=== PATIENT | female | born 1985 | race African-American/Black ===

== ENCOUNTER 2025-09-18 09:41 | Inpatient (IN) | payer MEDICAID, OTHER ==
[~2025-09-18] VITALS: Ht 167.6 cm; Wt 88.5 kg
--- NOTE | 2025-09-18 10:49 | ED.PDOC ---
History of Present Illness HPI Comments 40 year old female with PMHx HTN presents to the ED with a chief complaint of cough onset 1 week. Patient states she has been experiencing cough with hemoptysis as well as blood when she blows her nose, poor appetite. For the past 5 months, she has been experiencing LT foot numbness with pain, worsens with e xertion. She has not seen PCP, moved from [place], dealing with insurance issues. Denies fever, chills, nausea, vomiting, diarrhea, hematemesis, melena, blood in stool, dizziness, blurred vision, abdominal pain, chest pain, shortness of breath. No other symptoms or modifying factors present at this time. 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 Pertinent DRY ICE MACHINE OPERATOR History Family History Family History: Reviewed,noncontributory to illness, No family hx of Cancer, No family hx of DM, No family hx of Heart denisse, No family hx of HTN, No family hx ofKidney denisse, No family hx of Liver denisse, No family hx of Lung denisse, No family hx of Stroke Social History Smoker: Non-Smoker Alcohol: Denies ETOH Use Drugs: Denies Drug Use Lives In: Home Constitutional: denies: chills, diaphoresis, fatigue, fever, malaise, sweats, weakness, others EENTM: reports: nose bleeding (bloody); denies: blurred vision, double vision, ear bleeding, ear discharge, ear drainage, ear pain, ear ringing, eye pain, eye redness, hearing loss, mouth pain, mouth swelling, nasal discharge, nose congest ion, nose pain, photophobia, tearing, throat pain, throat swelling, voice changes, others Respiratory: reports: cough, hemoptysis; denies: orthopnea, SOB at rest, shortness of breath, SOB with excertion, stridor, wheezing, others Cardiovascular: denies: chest pain, dizzy spells, diaphoresis, Dyspnea on exertion, edema, irregular heart beat, left arm pain, lightheadedness, palpitations, PND, syncope, others Gastrointestinal: reports: poor appetite; denies: abdomen distended, abdominal pain, blood streaked bowels, constipated, diarrhea, dysphagia, difficulty swallowing, hematemesis, melena, nausea, poor fluid intake, rectal bleeding, rectal pain, vomiting, others Genitourinary: denies: abnormal vagina bleeding, burning, dyspareunia, dysuria, flank pain, frequency, hematuria, incontinence, pain, , vagina discharge, urgency, others Neurological: reports: numbness (LT foot); denies: dizziness, fainting, headache, left sided numbness, left sided weakness, paresthesia, pre-existing deficit, right sided numbness, right sided weakness, seizure, speech problems, tingling, tremors, weakness, others Musculoskeletal: reports: others (LT foot pain and numbness); denies: back pain, gout, joint pain, joint swelling, muscle pain, muscle stiffness, neck pain Integumetry: denies: bruises, change in color, change in hair/nails, dryness, laceration, lesions, lumps, rash, wounds, others Allergic/Immunocompromised: denies: Difficulty Healing, Frequent Infections, Hives, Itching, others Hematologic/Lymphatic: denies: anemia, blood clots, easy bleeding, easy bruising, swollen glands, others Endocrine: denies: excessive hunger, excessive sweating, excessive thirst, excessive urination, flushing, intolerance to cold, intolerance to heat, unexplained weight gain, unexplained weight loss, others Psychiatric: denies: anxiety, bipolar disorder, depression, hopeless, panic disorder, schizophrenia, sleepless, suicidal, others All Other Systems: Reviewed and Negative Physical Exam General Appearance: Normal HEENT: Normal ENT Inspection, Pharynx Normal, TMs Normal Neck: Full Range of Motion, Non-Tender, Normal, Normal Inspection Respiratory: Chest Non-Tender, Lungs Clear, No Accessory Muscle Use, No Respira tory Distress, Normal Breath Sounds Cardiovascular: No Edema, No JVD, No Murmur, No Gallop, Normal Peripheral Pulses, Regular Rate/Rhythm Breast Exam: Deferred Gastrointestinal: No Organomegaly, Non Tender, No Pulsatile Mass, Normal Bowel Sounds, Soft Genitalia: Deferred Pelvic: Deferred Rectal: Deferred Extremities: No calf tenderness, Normal capillary refill, Normal inspection, Normal range of motion, Non-tender, No pedal edema Musculoskeletal : Apperance: Normal Neurologic: Alert, torpedo worker II-XII nml as Tested, No Motor Deficits, Normal Affect, Normal Mood, No Sensory Deficits Cerebellar Function: Normal Reflexes: Normal Skin: Dry, Normal Color, Warm Lymphatic: No Adenopathy Was a procedure done? Was a procedure done?: No Differential Dx Considerations may include: Viral syndrome, arthralgias, hypertensive urgency, infectious etiology X-Ray, Labs, Meds, VS Vital Signs Date Time Temp Pulse Resp B/P (MAP) Pulse Ox O2 Delivery O2 Flow Rate FiO2 09/18/25 12:05 98.2 80 16 190/119 (142) 98 98.2 09/18/25 10:12 94 18 98 Room Air 09/18/25 10:12 94 18 147/101 (116) 98 09/18/25 09:43 98.5 86 18 141/105 98 98.5 Lab Test 09/18/25 11:04 09/18/25 10:42 Range/Units Urine Color Light-yellow Yellow Urine Clarity Turbid H Clear Urine pH 7.0 5.0-9.0 Urine Specific [place] 1.023 1.001-1.035 Urine Protein Negative Negative Urine Ketones Negative Negative Urine Blood 3+ H Negative /uL Urine Nitrite Negative Negative Urine Bilirubin Negative Negative Urine Urobilinogen Normal Negative mg/dL Urine Leukocyte Esterase Negative Negative /uL Urine RBC 341 0 - 4 /hpf Urine Microscopic WBC 2 0-5 /HPF Urine Squamous Epithelial Cells Few <5 /hpf Urine Amorphous Crystals Few None Seen /hpf Urine Bacteria Many H None Seen /hpf Urine Yeast (Budding) Moderate None Seen /hpf Urine Glucose Normal Normal mg/dL Urine Test Negative Negative White Blood Count 4.8 4.4-10.8 10^3/uL Red Blood Count 4.90 4.0-5.20 10^6/uL Hemoglobin 14.8 12.2-16.2 g/dL Hematocrit 43.0 36.0-46.0 % Mean Corpuscular Volume 87.7 80.0-100.0 fL Mean Corpuscular Hemoglobin 30.3 28.0-32.0 pg Mean Corpuscular Hemoglobin Concent 34.5 32.0-36.0 g/dL Red Cell Distribution Width 12.6 11.8-14.3 % Platelet Count 221 140-450 10^3/uL Mean Platelet Volume 7.9 6.9-10.8 fL Neutrophils (%) (Auto) 51.4 37.0-80.0 % Lymphocytes (%) (Auto) 37.3 10.0-50.0 % Monocytes (%) (Auto) 9.3 0.0-12.0 % Eosinophils (%) (Auto) 1.0 0.0-7.0 % Basophils (%) (Auto) 1.0 0.0-2.0 % Neutrophils # (Auto) 2.5 1.6-8.6 10 ^3/uL Lymphocytes # (Auto) 1.8 0.4-5.4 10 ^3/uL Monocytes # (Auto) 0.4 0-1.3 10 ^3/uL Eosinophils # (Auto) 0 0-0.8 10 ^3/uL Basophils # (Auto) 0 0-0.2 10 ^3/uL Nucleated Red Blood Cells 0.2 % Sodium Level 140 136-145 mmol/L Potassium Level 3.7 3.5-5.1 mmol/L Chloride Level 104 98-107 mmol/L Carbon Dioxide Level 28 20-31 mmol/L Anion Gap 8 5-15 Blood Urea Nitrogen 10 9-23 mg/dL Creatinine 0.75 0.550-1.02 mg/dL Glomerular Filtration Rate Calc 104 >90 mL/min BUN/Creatinine Ratio 13.3 10.0-20.0 Serum Glucose 94 74-106 mg/dL Calcium Level 9.5 8.7-10.4 mg/dL Time of 1ST Reevaluation: 11:10 Reevaluation 1ST: Unchanged Patient Education/Counseling: Diagnosis, Treatment, Prognosis Family Education/Counseling: No Family Present SEPSIS Sepsis Screen Date sepsis recognized/suspect: Sep 18, 2025 Time Sepsis recognized/suspect: 09 Recent Procedure: No On Antibiotic Therapy: No Respiratory Rate >20: No Heart Rate >90: No Temp<36 C (96.8 F) or >38.3 C: No SBP <90 or MAP <65 mmHG: No New Acute Mental Status Change: No Is the patient on CPAP, BIPAP,: No Physician Orders L Foot 3 View Xray (09/18/25 10:33) Chest Portable (09/18/25 10:33) Troponin-I Hs (09/18/25 12:09) Troponin-I Hs (09/18/25 13:09) Troponin-I Hs (09/18/25 15:09) Hydralazine Injection (Apresoline Inject (09/18/25 12:15) Vital Signs Date Time Temp Pulse Resp B/P (MAP) Pulse Ox O2 Delivery O2 Flow Rate FiO2 09/18/25 12:05 98.2 80 16 190/119 (142) 98 98.2 09/18/25 10:12 94 18 98 Room Air 09/18/25 10:12 94 18 147/101 (116) 98 09/18/25 09:43 98.5 86 18 141/105 98 98.5 Laboratory Tests Test 09/18/25 10:42 White Blood Count 4.8 10^3/uL (4.4-10.8) Departure 1 Departure Time of Disposition: 12:11 (Patient presented with hypertension and symptoms concerning for hypertensive emergency. Patient is receiving iv blood pressure medications requiring intensive monitoring. Data: 1. I ordered and reviewed the result of at least 3 labs including a CBC, BMP, and Urinalysis. 2. I independently interpreted the following tests: Chest x-ray is benign. EKG which is Normal Sinus RhythmRisk:This patient has a high risk of morbidity due to further diagnostic testing or treatment and may suffer from an acute cardiac disorder. Workup reveals hypertensive emergency and patient should be admitted for further workup. and possible expert consultation. ) Impression: Primary Impression: Hypertensive urgency Additional Impressions: Generalized weakness Numbness of left foot Disposition: ADMITTED INPATIENT Admit to: Tele Condition: Guarded Critical Care Note Critical Care Time?: Yes Critical care comment: Hypertensive urgency Authorized and Performed by: Kamila Ho MD Total critical care time: Approximately 39 minutes Due to a high probability of clinically significant, life threatening deterioration, the patient required my highest level of preparedness to interven e emergently and I personally spent this critical care time directly and personally managing the patient. This critical care time included obtaining a history; examining the patient; pulse oximetry; ordering and review of studies; arranging urgent treatment with development of a management plan; evaluation of patient's response to treatment; frequent reassessment; and, discussions with other providers. This critical care time was performed to assess and manage the high probability of imminent, life-threatening deterioration that could result in multi-organ failure. It was exclusive of separately billable procedures and treating other patients and teaching time. Please see my other sections and the rest of the note for further information on patient assessment and treatment. Stability Stability form required: No Heart Score Heart Score: Heart Score Response (Comments) Value History N/A 0 EKG N/A 0 Age N/A 0 Risk Factors N/A 0 Troponin N/A 0 Total 0 I personally scribed for KAMILA HO MD ([email or web address]) on 09/18/25 at 10:49. Elect ronically submitted by Fabinaa Haywood ([email or web address]). KAMILA HO MD Sep 18, 2025 10:49
[2025-09-18 10:52] LABS: Hematocrit 43.0 % (36.0-46.0); Hemoglobin 14.8 g/dL (12.2-16.2); Mean Corpuscular Hemoglobin 30.3 pg (28.0-32.0); Mean Corpuscular Volume 87.7 fL (80.0-100.0); Nucleated Red Blood Cells % 0.2 %
[2025-09-18 10:59] LABS: Chloride 104 mmol/L (98-107); Potassium 3.7 mmol/L (3.5-5.1); Sodium 140 mmol/L (136-145)
[2025-09-18 11:00] LABS: Anion Gap 8 (5-15); Calcium 9.5 mg/dL (8.7-10.4); Carbon Dioxide 28 mmol/L (20-31)
[2025-09-18 11:05] LABS: BUN/Creatinine Ratio 13.3 (10.0-20.0); Blood Urea Nitrogen 10 mg/dL (9-23); Glucose 94 mg/dL (74-106)
[2025-09-18 11:22] LABS: Urine Amorphous Crystal FEW /hpf (None Seen); Urine Budding Yeast MODERATE /hpf (None Seen); Urine Protein, UAD Negative (Negative)
--- NOTE | 2025-09-18 11:53 | DVH ---
XY CHEST PORTABLE, HISTORY: Bloody cough COMPARISON: None None TECHNICAL DATA: 1 view of the chest was obtained. FINDINGS: Lines and tubes: None Cardiomediastinal silhouette: normal Pulmonary vasculature: normal Lung expansion: normal Lung airspace: normal Lung interstitium: normal Pleura: normal Pneumothorax: no Bones: Unremarkable Other: no IMPRESSION: No acute intrathoracic abnormality.
--- NOTE | 2025-09-18 11:56 | DVH ---
CLINICAL INDICATION: left foot pain TECHNIQUE: 3 radiographic views of the left foot were obtained. Comparison: None FINDINGS/IMPRESSION: There are no fractures dislocations noted in the left foot. Bony alignment appears normal. There are no radiopaque foreign bodies.
[2025-09-18] MEDS: hydrALAZINE HCL 20 MG/ML VL IV ONE (13:10)
[2025-09-18] MEDS ORDERED: ACETAMINOPHEN 325 MG TAB PO PRN (14:30)
[2025-09-18] MEDS ORDERED: MORPHINE SULFATE INJ 2 MG/ml SYRG IV PRN (14:30)
[2025-09-18] MEDS ORDERED: NITROGLYCERIN 0.4 MG SL TAB SL PRN (14:30)
[2025-09-18] MEDS ORDERED: ONDANSETRON HCL 4 MG/2 ML VIAL IV PRN (14:30)
[2025-09-18] MEDS ORDERED: LOS25T PO (14:38)
[2025-09-18] MEDS ORDERED: LISINOPRIL 5 MG TAB PO ONE (15:00)
--- NOTE | 2025-09-18 15:00 | DVHHP2 ---
History of Present Illness Reason for Visit: Cough History of Present Illness Cecy Velasco is a 40-year-old female with past medical history of hypertension, who came to the hospital for shortness of breath and cough. Patient states she has been experiencing bloody noses, cough, hemoptysis, decreased appetite, and fatigue for almost 2 weeks. She states she her symptoms have worsened with shortness of breath when laying down, and she is propping herself up with pillows to sleep. She also states she had left foot numbness and tingling for a couple months. Cardiovascular: HTN Past Surgical History: Appendectomy Smoke: No ALCOHOL: none Drugs: None Lives: Alone Domestic Violence: Neg Review of Systems Constitutional: No: Fever, Chills, Sweats, Weakness, Malaise, Other Eyes: No: Pain, Vision change, Conjunctivae inflammation, Eyelid inflammation, Other, Redness ENT: No: Ear pain, Ear discharge, Nose pain, Nose discharge, Nose congestion, Mouth pain, Mouth swelling, Throat pain, Throat swelling, Other Respiratory: Cough, Shortness of breath, Hemoptysis; No: Dry, SOB with excertion, Wheezing, Pleuritic Pain, Sputum, Wheezing, Other Cardiovascular: No: Chest Pain, Palpitations, Orthopnea, Paroxysmal Noc. Dyspnea, Edema, Lt Headedness, Other Gastrointestinal: No: Nausea, Vomiting, Abdominal Pain, Diarrhea, Constipation, Melena, Hematochezia, Other Genitourinary: No Dysuria, No Frequency, No Incontinence, No Hematuria, No Retention, No Other Musculoskeletal: No: other, neck pain, shoulder pain, arm pain, back pain, hand pain, leg pain, foot pain Skin: No: Rash, Lesions, Jaundice, Bruising, Other Neurological: Numbness (Left foot); No: Weakness, Incoordination, Change in speech, Confusion, Seizures, Other Allergies: Coded Allergies: NO KNOWN ALLERGIES (Unverified , 09/18/25) Medications Current Medications Medications Dose Ordered Sig/Toshia Route Start Time Stop Time Status Last Admin Dose Admin Acetaminophen/ Hydrocodone Bitart 1 tab Q4HP PRN PO 09/18/25 14:30 UNV Ondansetron HCl 4 mg Q4HP PRN IV 09/18/25 14:30 UNV Docusate Sodium 100 mg BIDPRN PRN PO 09/18/25 14:30 UNV Acetaminophen 650 mg Q6HP PRN PO 09/18/25 14:30 UNV Nitroglycerin 0.4 mg Q5MINP PRN SL 09/18/25 14:30 UNV Morphine Sulfate 2 mg Q30M PRN IV 09/18/25 14:30 UNV Exam Vital Signs Vital Signs Date Time Temp Pulse Resp B/P (MAP) Pulse Ox O2 Delivery O2 Flow Rate FiO2 09/18/25 13:10 149/79 09/18/25 12:05 98.2 80 16 98 98.2 09/18/25 10:12 Room Air General Appearance: Alert, Oriented X3, Cooperative, No acute distress HEENT: Atraumatic, PERRLA Respiratory: Other (Diminished breath sounds) Cardiovascular: Regular rate, Normal S1, Normal S2 Abdominal: Normal bowel sounds, Soft, No tenderness Extremities: No clubbing, No cyanosis, No edema, Normal pulses, No tenderness/swelling Skin: No rashes, No breakdown Neuro: Normal gait, Normal speech, Strength at 5/5 X4 ext Psych/Mental Status: Mental status NL, Mood NL Labs/Xrays Labs Test 09/18/25 12:44 09/18/25 11:04 09/18/25 10:42 Range/Units Troponin I High Sensitivity 4 </=34 ng/L Urine Color Light-yellow Yellow Urine Clarity Turbid H Clear Urine pH 7.0 5.0-9.0 Urine Specific [place] 1.023 1.001-1.035 Urine Protein Negative Negative Urine Ketones Negative Negative Urine Blood 3+ H Negative /uL Urine Nitrite Negative Negative Urine Bilirubin Negative Negative Urine Urobilinogen Normal Negative mg/dL Urine Leukocyte Esterase Negative Negative /uL Urine RBC 341 0 - 4 /hpf Urine Microscopic WBC 2 0-5 /HPF Urine Squamous Epithelial Cells Few <5 /hpf Urine Amorphous Crystals Few None Seen /hpf Urine Bacteria Many H None Seen /hpf Urine Yeast (Budding) Moderate None Seen /hpf Urine Glucose Normal Normal mg/dL Urine Test Negative Negative White Blood Count 4.8 4.4-10.8 10^3/uL Red Blood Count 4.90 4.0-5.20 10^6/uL Hemoglobin 14.8 12.2-16.2 g/dL Hematocrit 43.0 36.0-46.0 % Mean Corpuscular Volume 87.7 80.0-100.0 fL Mean Corpuscular Hemoglobin 30.3 28.0-32.0 pg Mean Corpuscular Hemoglobin Concent 34.5 32.0-36.0 g/dL Red Cell Distribution Width 12.6 11.8-14.3 % Platelet Count 221 140-450 10^3/uL Mean Platelet Volume 7.9 6.9-10.8 fL Neutrophils (%) (Auto) 51.4 37.0-80.0 % Lymphocytes (%) (Auto) 37.3 10.0-50.0 % Monocytes (%) (Auto) 9.3 0.0-12.0 % Eosinophils (%) (Auto) 1.0 0.0-7.0 % Basophils (%) (Auto) 1.0 0.0-2.0 % Neutrophils # (Auto) 2.5 1.6-8.6 10 ^3/uL Lymphocytes # (Auto) 1.8 0.4-5.4 10 ^3/uL Monocytes # (Auto) 0.4 0-1.3 10 ^3/uL Eosinophils # (Auto) 0 0-0.8 10 ^3/uL Basophils # (Auto) 0 0-0.2 10 ^3/uL Nucleated Red Blood Cells 0.2 % Sodium Level 140 136-145 mmol/L Potassium Level 3.7 3.5-5.1 mmol/L Chloride Level 104 98-107 mmol/L Carbon Dioxide Level 28 20-31 mmol/L Anion Gap 8 5-15 Blood Urea Nitrogen 10 9-23 mg/dL Creatinine 0.75 0.550-1.02 mg/dL Glomerular Filtration Rate Calc 104 >90 mL/min BUN/Creatinine Ratio 13.3 10.0-20.0 Serum Glucose 94 74-106 mg/dL Calcium Level 9.5 8.7-10.4 mg/dL TECHNIQUE: 3 radiographic views of the left foot were obtained. FINDINGS/IMPRESSION: There are no fractures dislocations noted in the left foot. Bony alignment appears normal. There are no radiopaque foreign bodies. XY CHEST PORTABLE, FINDINGS: Lines and tubes: None Cardiomediastinal silhouette: normal Pulmonary vasculature: normal Lung expansion: normal Lung airspace: normal Lung interstitium: normal Pleura: normal Pneumothorax: no Bones: Unremarkable Other: no IMPRESSION: No acute intrathoracic abnormality. SEPSIS Sepsis Screen Date sepsis recognized/suspect: Sep 18, 2025 Time Sepsis recognized/suspect: 0943 Recent Procedure: No On Antibiotic Therapy: No Respiratory Rate >20: No Heart Rate >90: No Temp<36 C (96.8 F) or >38.3 C: No SBP <90 or MAP <65 mmHG: No New Acute Mental Status Change: No Is the patient on CPAP, BIPAP,: No Physician Orders L Foot 3 View Xray (09/18/25 10:33) Chest Portable (09/18/25 10:33) Troponin-I Hs (09/18/25 15:09) Admit (09/18/25 14:28) Code Status (09/18/25 14:28) 2 Gm Sodium Diet (09/18/25 Dinner) Hydrocodone-Acet 5/325mg Tab ([place] 32 (09/18/25 14:30) Ondansetron Hcl (Zofran) (09/18/25 14:30) Docusate Sodium Capsule (Colace Capsule) (09/18/25 14:30) Complete Blood Count (09/19/25 04:00) Comprehensive Metabolic Panel (09/19/25 04:00) Echo 2d Mode Cardiac Dop (09/18/25 14:28) Condition: Serious (09/18/25 14:28) Acetaminophen Tablet (Tylenol Tablet) (09/18/25 14:30) Nitroglycerin Sublingual (Ntrostat Subli (09/18/25 14:30) Morphine Sulfate Injection (09/18/25 14:30) Stat Ekg For Chest Pain (09/18/25 14:28) Notify Md Of Changes From Base (09/18/25 14:28) Senior Clinical Data Coordinator For 24 Hours (09/18/25 14:28) Emergency Dysrhythmia Protocol (09/18/25 14:28) Rhythm Strips Once Every Shift (09/18/25 14:28) Oxygen By Nasal Cannula (09/18/25 14:28) Respiratory Culture W/ Gs (09/18/25 14:38) Losartan Tablet (Cozaar Tablet) (09/19/25 10:00) Vital Signs Date Time Temp Pulse Resp B/P (MAP) Pulse Ox O2 Delivery O2 Flow Rate FiO2 09/18/25 13:10 149/79 09/18/25 12:05 98.2 80 16 190/119 (142) 98 98.2 09/18/25 10:12 94 18 98 Room Air 09/18/25 10:12 94 18 147/101 (116) 98 09/18/25 09:43 98.5 86 18 141/105 98 98.5 Laboratory Tests Test 09/18/25 10:42 White Blood Count 4.8 10^3/uL (4.4-10.8) Assessment/Plan Assessment/Plan Assessment: Hypertensive urgency, Hemoptysis, Paraesthesia, Plan: Admit to Tele, ECHO, Consider CT of chest, Breathing treatments as needed, PRN antihypertensives, Sputum culture, Home medications reconciled, Plan discussed with: Patient My Orders Orders - NATALIE TATUM Procedure Category Date Status Time Admit ADMIT 09/18/25 Transmitted 14:28 Code Status CODE 09/18/25 Transmitted 14:28 2 Gm Sodium Diet DIET 09/18/25 Transmitted Dinner Hydrocodone-Acet PHA 09/18/25 Logged 5/325mg Tab ([place] 14:30 Ondansetron Hcl PHA 09/18/25 Logged (Zofran) 14:30 Docusate Sodium PHA 09/18/25 Logged Capsule (Colace 14:30 Complete Blood Count LAB 09/19/25 Verified 04:00 Comprehensive LAB 09/19/25 Verified Metabolic Panel 04:00 Echo 2d Mode Cardiac US 09/18/25 Logged DOP 14:28 Condition: Serious MARJORIE 09/18/25 In Process 14:28 Acetaminophen Tablet PHA 09/18/25 Logged (Tylenol Tablet) 14:30 Nitroglycerin PHA 09/18/25 Logged Sublingual (Ntrostat 14:30 Morphine Sulfate PHA 09/18/25 Logged Injection 14:30 Stat Ekg For Chest MARJORIE 09/18/25 In Process Pain 14:28 Notify Of Changes MARJORIE 09/18/25 In Process From Base 14:28 Senior Clinical Data Coordinator For MARJORIE 09/18/25 In Process 24 Hours 14:28 Emergency Dysrhythmia MARJORIE 09/18/25 In Process Protocol 14:28 Rhythm Strips Once MARJORIE 09/18/25 In Process Every Shift 14:28 Oxygen By Nasal RT 09/18/25 Transmitted Cannula 14:28 Respiratory Culture LISA 09/18/25 Logged W/ Gs 14:38 Losartan Tablet PHA 09/19/25 Logged (Cozaar Tablet) 10:00 Date of Service: Sep 18, 2025 Billing Provider: NATALIE TATUM Common Visit Codes: [id number] INP/OBS CARE (MOD) NATALIE TATUM Sep 18, 2025 15:00
[2025-09-18 16:22] LABS: COVID19 ANTIGEN SOFIA FIA NEGATIVE (NEGATIVE)
[2025-09-18 18:55] VITALS: BP 157/106; PULSE 79; RESP 18; RESP 20; TEMP 97.4; O2SAT 98
[2025-09-18 20:43] VITALS: BP 140/90; PULSE 94; RESP 19; TEMP 96.3; O2SAT 97
[2025-09-19] VITALS (9 sets, daily range): BP systolic 106–155; BP diastolic 59–100; PULSE 73–99; RESP 16–20; TEMP 98–98.6; O2SAT 96–100
[2025-09-19 06:18] LABS: Hematocrit 42.6 % (36.0-46.0); Hemoglobin 14.7 g/dL (12.2-16.2); Mean Corpuscular Hemoglobin 30.4 pg (28.0-32.0); Mean Corpuscular Volume 87.8 fL (80.0-100.0); Nucleated Red Blood Cells % 0.1 %
[2025-09-19 06:45] LABS: Alanine Aminotransferase 35 U/L (7-40); Albumin 4.4 g/dL (3.2-4.8); Alkaline Phosphatase 61 U/L (46-116); Anion Gap 8 (5-15); BUN/Creatinine Ratio 14.5 (10.0-20.0); Bilirubin, Total 0.6 mg/dL (0.2-1.0); Blood Urea Nitrogen 11 mg/dL (9-23); Calcium 9.6 mg/dL (8.7-10.4); Carbon Dioxide 28 mmol/L (20-31); Chloride 103 mmol/L (98-107); Glucose 85 mg/dL (74-106); Potassium 3.7 mmol/L (3.5-5.1); Sodium 139 mmol/L (136-145); Total Protein 7.6 g/dL (5.7-8.2)
[2025-09-19] MEDS ORDERED: LISINOPRIL 5 MG TAB PO SCH (10:00)
[2025-09-19] MEDS: LOSARTAN POTASSIUM 25 MG TAB PO SCH (10:23)
[2025-09-19] MEDS: DOCUSATE SOD 100 MG CAP PO PRN (15:07)
--- NOTE | 2025-09-19 15:17 | DVHPN2 ---
Reviewed: H&P Changes from previous H/P or p: No Changes General: Per HPI Eyes: No Pain, No Vision change, No Conjunctivae inflammation, No Eyelid inflammation, No Other, No Redness ENT: No Ear pain, No Ear discharge, No Nose pain, No Nose discharge, No Nose congestion, No Mouth pain, No Mouth swelling, No Throat pain, No Throat swelling, No Other Cardiovascular: No Chest Pain, No Palpitations, No Orthopnea, No Paroxysmal Noc. Dyspnea, No Edema, No Lt Headedness, No Other Respiratory: Cough; No Dry; Shortness of breath; No SOB with excertion, No Wheezing; Hemoptysis; No Pleuritic Pain, No Sputum, No Other Gastrointestinal: No Nausea, No Vomiting, No Abdominal Pain, No Diarrhea, No Constipation, No Melena, No Hematochezia, No Other Genitourinary: No Dysuria, No Frequency, No Incontinence, No Hematuria, No Retention, No Other Musculoskeletal: No other, No neck pain, No shoulder pain, No arm pain, No back pain, No hand pain, No leg pain, No foot pain Skin: No Rash, No Lesions, No Jaundice, No Bruising, No Other Objective Vitals Vital Signs Date Time Temp Pulse Resp B/P (MAP) Pulse Ox O2 Delivery O2 Flow Rate FiO2 09/19/25 12:00 98.0 73 20 155/99 (117) 100 98.0 09/19/25 08:00 Room Air* 0 21 Intake/Output Intake and Output 09/19/25 07:00 Intake Total 0 ml Balance 0 ml Intake Oral 0 ml Exam GEN: Healthy appearing, well-developed, NAD. HEENT: NC/AT; MMM. CV: RRR, no m/r/g. LUNGS: CTAB, no w/r/c. ABD: Soft, NT/ND, NBS, no masses or organomegaly. EXT: skin Warm, well perfused. no rashes. No clubbing, cyanosis, or edema. NEURO: Ambulating with no limitations. No focal deficits. Medications Current Medications Medications Dose Ordered Sig/Toshia Route Start Time Stop Time Status Last Admin Dose Admin Acetaminophen/ Hydrocodone Bitart 1 tab Q4HP PRN PO 09/18/25 14:30 Ondansetron HCl 4 mg Q4HP PRN IV 09/18/25 14:30 Docusate Sodium 100 mg BIDPRN PRN PO 09/18/25 14:30 09/19/25 15:07 100 MG Acetaminophen 650 mg Q6HP PRN PO 09/18/25 14:30 Nitroglycerin 0.4 mg Q5MINP PRN SL 09/18/25 14:30 Morphine Sulfate 2 mg Q30M PRN IV 09/18/25 14:30 Losartan Potassium 25 mg DAILY PO 09/19/25 10:00 09/19/25 10:23 25 MG Clonidine HCl 0.1 mg Q6HP PRN PO 09/18/25 15:00 09/18/25 20:30 0.1 MG Amlodipine Besylate 5 mg DAILY PO 09/19/25 10:00 09/19/25 10:25 5 MG Ceftriaxone Sodium 50 ml @ 100 mls/hr DAILY@09 IV 09/20/25 09:00 Azithromycin 250 ml @ 125 mls/hr TID IV 09/19/25 22:00 UNV Gabapentin 100 mg BID PO 09/19/25 22:00 Laboratory Results Laboratory Tests 09/19/25 04:58 Chemistry Test 09/19/25 04:58 Albumin 4.4 g/dL (3.2-4.8) Calcium Level 9.6 mg/dL (8.7-10.4) Total Protein 7.6 g/dL (5.7-8.2) LFT Test 09/19/25 04:58 Alanine Aminotransferase (ALT) 35 U/L (7-40) Alkaline Phosphatase 61 U/L (46-116) Aspartate Amino Transferase (AST) 22 U/L (13-40) Total Bilirubin 0.6 mg/dL (0.2-1.0) Urinalysis Test 09/18/25 11:04 Urine Color Light-yellow (Yellow) Urine Clarity Turbid (Clear) H Urine pH 7.0 (5.0-9.0) Urine Specific [place] 1.023 (1.001-1.035) Urine Protein Negative (Negative) Urine Ketones Negative (Negative) Urine Blood 3+ /uL (Negative) H Urine Nitrite Negative (Negative) Urine Bilirubin Negative (Negative) Urine Urobilinogen Normal mg/dL (Negative) Urine Leukocyte Esterase Negative /uL (Negative) Urine RBC 341 /hpf (0 - 4) Urine Microscopic WBC 2 /HPF (0-5) Urine Squamous Epithelial Cells Few /hpf (<5) Urine Amorphous Crystals Few /hpf (None Seen) Urine Bacteria Many /hpf (None Seen) H Urine Yeast (Budding) Moderate /hpf (None Seen) Urine Glucose Normal mg/dL (Normal) Urine Test Negative (Negative) Labs and/or images reviewed: Labs reviewed by me, Image(s) reviewed by me Assessment/Plan Assessment/Plan 40-year-old female with past medical history of hypertension, who came to the hospital for shortness of breath and cough. Patient states she has been experiencing bloody noses, cough, hemoptysis, decreased appetite, and fatigue for almost 2 weeks. She states she her symptoms have worsened with shortness of breath when laying down, and she is propping herself up with pillows to sleep. 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 We will have to do TB ruled out,, AFP smear stents 3, IgA RA, start antibiotics azithromycin ceftriaxone,. Nebulizers prn. Continue blood pressure medications. For her peripheral neuropathy start gabapentin 100 mg 2 times daily. We will also get CT chest. Echocardiogram pending Diagnosis: Hypertensive urgency, Hemoptysis, TB ruled out Pneumonia , possible, community-acquired, Gram-negative/Gram-positive likely. Paraesthesia, ? Peripheral neuropathy Plan: Ceftriaxone Azithromycin For blood pressure losartan 25, amlodipine 5 Gabapentin 100 mg 2 times daily AFB smears Continue other home medications TV isolation, until ruled out Tele Full code Plan discussed with: Patient My Orders Orders - REKHA OCHOA MD Procedure Category Date Status Time Afb Cult/Smear Broth LISA 09/19/25 Logged Suscep 22:00 Afb Cult/Smear Broth LISA 09/20/25 Logged Suscep 06:00 Afb Cult/Smear Broth LISA 09/20/25 Logged Suscep 14:00 Sputum Induction RT 09/19/25 Logged 15:00 Ceftriaxone 1gm/50ml PHA 09/19/25 In Process (Rocephin) 14:45 Ceftriaxone 1gm/50ml PHA 09/20/25 In Process (Rocephin) 09:00 Azithromycin 500mg/ PHA 09/19/25 Logged 250ml (Zithromax 50 22:00 Gabapentin Capsule PHA 09/19/25 In Process (Neurontin Capsule) 22:[address] 09/19/25 Logged 14:31 Date of Service: Sep 19, 2025 Billing Provider: REKHA OCHOA MD Common Visit Codes: [id number] INP/OBS CARE(HIGH) REKHA OCHOA MD Sep 19, 2025 15:17
--- NOTE | 2025-09-19 18:36 | DVH ---
CLINICAL HISTORY: HEMOPTYSIS TECHNIQUE: CT of the chest was performed without intravenous contrast. This exam was performed accord ing to our departmental dose optimization program. Up-to-date CT equipment and radiation dose reducti on techniques are utilized as appropriate. CTDI: 15.2 mGy; DLP: 605.27 mGy COMPARISON: XY CHEST PORTABLE on DOS: 09/18/25 FINDINGS: Lower Neck: Unremarkable Axilla, Mediastinum and Jaclyn: Mildly prominent bilateral axillary lymph nodes. There appears to be mi ld skin thickening of the axilla partially imaged. No grossly enlarged mediastinal or hilar lymph nod es. Heart and Great Vessels: Mild cardiomegaly with trace pericardial fluid. The thoracic aorta is arslan l in caliber. The central pulmonary arteries are normal caliber. Airway, Lungs and Pleura: Trachea and central airways are patent. No airspace consolidation, right pl eural effusion, or pneumothorax. Miniscule left pleural effusion. Minimal linear bibasilar scarring o r atelectasis. Tiny triangular nodule along the right minor fissure on sagittal image 42 is likely an intra fissural lymph node. Tiny sub 5 mm right middle lobe pulmonary nodule on series 3, image 72. Upper Abdomen: Mild splenomegaly. No acute abnormality in the upper abdomen. Chest Wall and Osseous Structures: No destructive osseous lesion. IMPRESSION: 1. Mild cardiomegaly and miniscule left pleural effusion. 2. No airspace consolidation, right pleural effusion, or pneumothorax. 3. Tiny sub 5 mm anterior subpleural right middle lobe pulmonary nodule, likely postinfectious or pos tinflammatory. 4. Mildly prominent bilateral axillary lymph nodes and mild skin thickening of the axilla bilaterally , partially imaged. This is nonspecific and may be reactive. Correlate if there is inflammation on cl inical exam. 5. Mild splenomegaly. Radiation optimization: All CT scans at this facility use at least one of these dose optimization marilyn hniques: automated exposure control mA and/or kV adjustment per patient size (includes targeted exam s where dose is matched to clinical indication) or iterative reconstruction.
[2025-09-19] MEDS: AZITHROMYCIN 500MG/ 250ML 250 ML IV SCH (21:13)
[2025-09-19] MEDS: GABAPENTIN 100 MG CAP PO SCH (21:14)
[2025-09-19] MEDS: HYDROcodone-ACET 5/325MG TAB PO PRN (21:14)
[2025-09-20] VITALS (8 sets, daily range): BP systolic 120–143; BP diastolic 82–97; PULSE 83–92; RESP 15–18; TEMP 98–98.7; O2SAT 95–99
--- NOTE | 2025-09-20 12:07 | DVHPN2 ---
Reviewed: H&P Changes from previous H/P or p: No Changes General: Per HPI Eyes: No Pain, No Vision change, No Conjunctivae inflammation, No Eyelid inflammation, No Other, No Redness ENT: No Ear pain, No Ear discharge, No Nose pain, No Nose discharge, No Nose congestion, No Mouth pain, No Mouth swelling, No Throat pain, No Throat swelling, No Other Cardiovascular: No Chest Pain, No Palpitations, No Orthopnea, No Paroxysmal Noc. Dyspnea, No Edema, No Lt Headedness, No Other Respiratory: Cough; No Dry; Shortness of breath; No SOB with excertion, No Wheezing; Hemoptysis; No Pleuritic Pain, No Sputum, No Other Gastrointestinal: No Nausea, No Vomiting, No Abdominal Pain, No Diarrhea, No Constipation, No Melena, No Hematochezia, No Other Genitourinary: No Dysuria, No Frequency, No Incontinence, No Hematuria, No Retention, No Other Musculoskeletal: No other, No neck pain, No shoulder pain, No arm pain, No back pain, No hand pain, No leg pain, No foot pain Skin: No Rash, No Lesions, No Jaundice, No Bruising, No Other Objective Vitals Vital Signs Date Time Temp Pulse Resp B/P (MAP) Pulse Ox O2 Delivery O2 Flow Rate FiO2 09/20/25 10:49 135/92 09/20/25 09:00 98.7 83 18 99 98.7 09/20/25 08:00 Room Air* 0 21 Intake/Output Intake and Output 09/20/25 07:00 Intake Total 2290 ml Balance 2290 ml Intake Oral 2240 ml IV Total 50 ml # Voids 6 Exam GEN: Healthy appearing, well-developed, NAD. HEENT: NC/AT; MMM. CV: RRR, no m/r/g. LUNGS: CTAB, no w/r/c. ABD: Soft, NT/ND, NBS, no masses or organomegaly. EXT: skin Warm, well perfused. no rashes. No clubbing, cyanosis, or edema. NEURO: Ambulating with no limitations. No focal deficits. Medications Current Medications Medications Dose Ordered Sig/Toshia Route Start Time Stop Time Status Last Admin Dose Admin Acetaminophen/ Hydrocodone Bitart 1 tab Q4HP PRN PO 09/18/25 14:30 09/19/25 21:14 1 TAB Ondansetron HCl 4 mg Q4HP PRN IV 09/18/25 14:30 Docusate Sodium 100 mg BIDPRN PRN PO 09/18/25 14:30 09/19/25 21:13 100 MG Acetaminophen 650 mg Q6HP PRN PO 09/18/25 14:30 Nitroglycerin 0.4 mg Q5MINP PRN SL 09/18/25 14:30 Morphine Sulfate 2 mg Q30M PRN IV 09/18/25 14:30 Losartan Potassium 25 mg DAILY PO 09/19/25 10:00 09/20/25 10:49 25 MG Clonidine HCl 0.1 mg Q6HP PRN PO 09/18/25 15:00 09/18/25 20:30 0.1 MG Amlodipine Besylate 5 mg DAILY PO 09/19/25 10:00 09/20/25 10:49 5 MG Ceftriaxone Sodium 50 ml @ 100 mls/hr DAILY@09 IV 09/20/25 09:00 09/20/25 10:49 100 MLS/HR Azithromycin 250 ml @ 125 mls/hr TID IV 09/19/25 22:00 09/20/25 06:08 125 MLS/HR Gabapentin 100 mg BID PO 09/19/25 22:00 09/20/25 10:49 100 MG Laboratory Results Laboratory Tests 09/19/25 04:58 Urinalysis Test 09/18/25 11:04 Urine Color Light-yellow (Yellow) Urine Clarity Turbid (Clear) H Urine pH 7.0 (5.0-9.0) Urine Specific [place] 1.023 (1.001-1.035) Urine Protein Negative (Negative) Urine Ketones Negative (Negative) Urine Blood 3+ /uL (Negative) H Urine Nitrite Negative (Negative) Urine Bilirubin Negative (Negative) Urine Urobilinogen Normal mg/dL (Negative) Urine Leukocyte Esterase Negative /uL (Negative) Urine RBC 341 /hpf (0 - 4) Urine Microscopic WBC 2 /HPF (0-5) Urine Squamous Epithelial Cells Few /hpf (<5) Urine Amorphous Crystals Few /hpf (None Seen) Urine Bacteria Many /hpf (None Seen) H Urine Yeast (Budding) Moderate /hpf (None Seen) Urine Glucose Normal mg/dL (Normal) Urine Test Negative (Negative) Labs and/or images reviewed: Labs reviewed by me, Image(s) reviewed by me Assessment/Plan Assessment/Plan 40-year-old female with past medical history of hypertension, who came to the hospital for shortness of breath and cough. Patient states she has been experiencing bloody noses, cough, hemoptysis, decreased appetite, and fatigue for almost 2 weeks. She states she her symptoms have worsened with shortness of breath when laying down, and she is propping herself up with pillows to sleep. 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 We will have to do TB ruled out,, AFP smear stents 3, IgA RA, start antibiotics azithromycin ceftriaxone,. Nebulizers prn. Continue blood pressure medications. For her peripheral neuropathy start gabapentin 100 mg 2 times daily. We will also get CT chest. Echocardiogram pending 09/20: CT showing right middle lobe subpleural 5 mm nodule. EAP sample was sent today, to monitor for next 2 days. Patient wants to leave. Encourage patient to stay. We will likely need palm consult. Diagnosis: Hypertensive urgency, Hemoptysis, TB ruled out Pneumonia , possible, community-acquired, Gram-negative/Gram-positive likely. Paraesthesia, ? Peripheral neuropathy Plan: Ceftriaxone Azithromycin For blood pressure losartan 25, amlodipine 5 Gabapentin 100 mg 2 times daily AFB smears Continue other home medications TV isolation, until ruled out Tele Full code Plan discussed with: Patient My Orders Orders - REKHA OCHOA MD Procedure Category Date Status Time Afb Cult/Smear Broth LISA 09/20/25 In Process Suscep 06:00 Afb Cult/Smear Broth LISA 09/20/25 Logged Suscep 14:00 Ceftriaxone 1gm/50ml PHA 09/20/25 In Process (Rocephin) 09:00 Azithromycin 500mg/ PHA 09/19/25 In Process 250ml (Zithromax 50 22:00 Gabapentin Capsule PHA 09/19/25 In Process (Neurontin Capsule) 22:[address] 09/19/25 Resulted 14:31 Afb Cult/Smear Broth LISA 25 Uncollected Suscep 05:00 Afb Cult/Smear Broth LISA 09/22/25 Uncollected Suscep 05:00 Sputum Induction RT 09/20/25 Logged 05:00 Send Out LAB 09/21/25 Logged Miscellaneous Lab Ref 08:00 Date of Service: Sep 20, 2025 Billing Provider: REKHA OCHOA MD Common Visit Codes: [id number] INP/OBS CARE(HIGH) REKHA OCHOA MD Sep 20, 2025 12:07
--- NOTE | 2025-09-20 21:18 | DVHINCON2 ---
Date of service: Sep 20, [address] Dominique Reason for Consultation Rule out TB, hemoptysis and pleural effusion. History of Present Illness A 40-year-old woman with past medical history of hypertension, who presented to the hospital on 09/18/25 with complaint of shortness of breath and cough. Patient reported experiencing episodes of bloody nose, cough, hemoptysis, decreased appetite, and fatigue for almost 2 weeks. She reported symptoms worsened with shortness of breath when lying down, and she is propping herself up with pillows to sleep. She also c/o left foot numbness and tingling ongoing for a couple months. Patient was admitted for further care. Pulmonary consultation is requested for evaluation and management for rule out TB, hemoptysis and pleural effusion. Review of Systems: 14-point review of systems negative unless otherwise noted above. Past Medical History: Hypertension. Past Surgical History: Appendectomy Medications: Reviewed. Allergies: No known drug allergies. Family History: Significant for hypertension. Social History: Nonsmoker. No alcohol or illicit drug use. Family History: Hypertension G8 MOTHER, Onset:Unknown Allergies: Coded Allergies: NO KNOWN ALLERGIES (Unverified , 09/18/25) Home Meds Reported Medications Losartan Potassium (Losartan Potassium) 25 Mg Tab, 1 TAB PO DAILY 09/18/25 Current Medications Current Medications Medications (Trade) Dose Ordered Sig/Toshia Route PRN Reason Start Time Stop Time Status Last Admin Ceftriaxone Sodium 50 ml @ 100 mls/hr DAILY@09 IV 09/20/25 09:00 09/20/25 10:49 Azithromycin 250 ml @ 125 mls/hr TID IV 09/19/25 22:00 09/20/25 13:46 Gabapentin (Neurontin Capsule) 100 mg BID PO 09/19/25 22:00 09/20/25 10:49 Vital Signs Vital Signs Date Time Temp Pulse Resp B/P (MAP) Pulse Ox O2 Delivery O2 Flow Rate FiO2 09/20/25 17:00 98.0 92 18 143/97 (112) 98 98.0 09/20/25 08:00 Room Air* 0 21 Physical Exam Gen.: Patient lying in bed in no apparent distress. Breathing on room air. Head: Normocephalic, atraumatic. Eyes: EOMI/PERRLA. Ears: Normal hearing. Normal anatomy. Neck/trachea: Trachea midline, supple. Nose: Normal external anatomy. Mouth: Moist mucous membranes. Chest: Decreased air entry bilaterally. No wheezing or rhonchi. Cardiovascular: Positive S1, positive S2. Regular rate and rhythm. Abdomen: Positive bowel sounds in all 4 quadrants. Soft, non-tender, non- distended. : Deferred. Rectal: Deferred. Skin: Warm, dry. Intact. Extremities: 2+ radial pulses bilaterally. No lower extremity edema. Neuro: Awake, alert, oriented x3. No gross motor or sensory deficits. Cranial nerves II through XII intact. Gait not assessed. Labs/Diagnostic Data Labs Test 09/20/25 13:26 09/20/25 08:05 09/19/25 04:58 09/18/25 15:47 Range/Units Miscellaneous Referred Test (Refrg) Sent to [facility] White Blood Count 5.7 4.4-10.8 10^3/uL Red Blood Count 4.85 4.0-5.20 10^6/uL Hemoglobin 14.7 12.2-16.2 g/dL Hematocrit 42.6 36.0-46.0 % Mean Corpuscular Volume 87.8 80.0-100.0 fL Mean Corpuscular Hemoglobin 30.4 28.0-32.0 pg Mean Corpuscular Hemoglobin Concent 34.6 32.0-36.0 g/dL Red Cell Distribution Width 12.5 11.8-14.3 % Platelet Count 217 140-450 10^3/uL Mean Platelet Volume 8.3 6.9-10.8 fL Neutrophils (%) (Auto) 47.0 37.0-80.0 % Lymphocytes (%) (Auto) 42.9 10.0-50.0 % Monocytes (%) (Auto) 8.6 0.0-12.0 % Eosinophils (%) (Auto) 1.1 0.0-7.0 % Basophils (%) (Auto) 0.4 0.0-2.0 % Neutrophils # (Auto) 2.7 1.6-8.6 10 ^3/uL Lymphocytes # (Auto) 2.4 0.4-5.4 10 ^3/uL Monocytes # (Auto) 0.5 0-1.3 10 ^3/uL Eosinophils # (Auto) 0.1 0-0.8 10 ^3/uL Basophils # (Auto) 0 0-0.2 10 ^3/uL Nucleated Red Blood Cells 0.1 % Sodium Level 139 136-145 mmol/L Potassium Level 3.7 3.5-5.1 mmol/L Chloride Level 103 98-107 mmol/L Carbon Dioxide Level 28 20-31 mmol/L Anion Gap 8 5-15 Blood Urea Nitrogen 11 9-23 mg/dL Creatinine 0.76 0.550-1.02 mg/dL Glomerular Filtration Rate Calc 102 >90 mL/min BUN/Creatinine Ratio 14.5 10.0-20.0 Serum Glucose 85 74-106 mg/dL Calcium Level 9.6 8.7-10.4 mg/dL Total Bilirubin 0.6 0.2-1.0 mg/dL Aspartate Amino Transferase (AST) 22 13-40 U/L Alanine Aminotransferase (ALT) 35 7-40 U/L Alkaline Phosphatase 61 46-116 U/L Total Protein 7.6 5.7-8.2 g/dL Albumin 4.4 3.2-4.8 g/dL Influenza Type A Antigen Negative Negative Influenza Type B Antigen Negative Negative SARS-CoV-2 Antigen (Rapid) Negative NEGATIVE Test 09/18/25 14:44 09/18/25 11:04 Range/Units Troponin I High Sensitivity 4 </=34 ng/L Urine Color Light-yellow Yellow Urine Clarity Turbid H Clear Urine pH 7.0 5.0-9.0 Urine Specific [place] 1.023 1.001-1.035 Urine Protein Negative Negative Urine Ketones Negative Negative Urine Blood 3+ H Negative /uL Urine Nitrite Negative Negative Urine Bilirubin Negative Negative Urine Urobilinogen Normal Negative mg/dL Urine Leukocyte Esterase Negative Negative /uL Urine RBC 341 0 - 4 /hpf Urine Microscopic WBC 2 0-5 /HPF Urine Squamous Epithelial Cells Few <5 /hpf Urine Amorphous Crystals Few None Seen /hpf Urine Bacteria Many H None Seen /hpf Urine Yeast (Budding) Moderate None Seen /hpf Urine Glucose Normal Normal mg/dL Urine Test Negative Negative Assessment Impression: Hemoptysis Pulmonary nodule Rule out Tuberculosis. Pleural effusion Atelectasis Plan: On room air Supplemental oxygen PRN Titrate to keep O2 sats above 92%. Pt noted on imaging to have pulmonary nodule, likely reactive. Chest CT on 09/19/25 demonstrates mild cardiomegaly and miniscule left pleural effusion. Tiny sub 5 mm anterior subpleural right middle lobe pulmonary nodule, likely postinfectious or postinflammatory. Mildly prominent bilateral axillary lymph nodes and mild skin thickening of the axilla bilaterally, partially imaged. Obtain [employer] smear x1 Obtain a total of 3 AFB smears. Consider bronchoscopy once active TB ruled out/AFB smears negative x3. Continue antibiotics Incentive spirometry Quantify hemoptysis Monitor renal function. Monitor electrolytes. Supplement as necessary. Monitor ins and outs. DVT prophylaxis. Prognosis: Poor given patient's multiple co-morbidities. Rest of plan per hospitalist and other consultants. Thank you, Dr. Dominique, for allowing me to participate in this patient's care. Further recommendations will depend on the patient's clinical course. Please do not hesitate to contact me if you have any questions or concerns. This medical document was created using an electronic medical record system with [employer] dictation system. Although these documentations are being carefully reviewed, there may still be some phonetic and typographical changes. The errors are purely typographical, due to imperfection on the software program, and do not reflect any compromise in the patient's medical care. Plan discussed with: Patient, Other (RN/MD) SAR[facility] Sep 20, 2025 21:18
[2025-09-21] VITALS (8 sets, daily range): BP systolic 126–145; BP diastolic 85–105; PULSE 72–99; RESP 16–18; TEMP 97.7–98.6; O2SAT 98–99
--- NOTE | 2025-09-21 10:36 | DVHPN2 ---
Reviewed: H&P Changes from previous H/P or p: No Changes General: Per HPI Eyes: No Pain, No Vision change, No Conjunctivae inflammation, No Eyelid inflammation, No Other, No Redness ENT: No Ear pain, No Ear discharge, No Nose pain, No Nose discharge, No Nose congestion, No Mouth pain, No Mouth swelling, No Throat pain, No Throat swelling, No Other Cardiovascular: No Chest Pain, No Palpitations, No Orthopnea, No Paroxysmal Noc. Dyspnea, No Edema, No Lt Headedness, No Other Respiratory: Cough; No Dry; Shortness of breath; No SOB with excertion, No Wheezing; Hemoptysis; No Pleuritic Pain, No Sputum, No Other Gastrointestinal: No Nausea, No Vomiting, No Abdominal Pain, No Diarrhea, No Constipation, No Melena, No Hematochezia, No Other Genitourinary: No Dysuria, No Frequency, No Incontinence, No Hematuria, No Retention, No Other Musculoskeletal: No other, No neck pain, No shoulder pain, No arm pain, No back pain, No hand pain, No leg pain, No foot pain Skin: No Rash, No Lesions, No Jaundice, No Bruising, No Other Objective Vitals Vital Signs Date Time Temp Pulse Resp B/P (MAP) Pulse Ox O2 Delivery O2 Flow Rate FiO2 09/21/25 09:55 145/97 09/21/25 09:00 98.0 82 18 98 98.0 09/20/25 20:00 Room Air* 0 21 Intake/Output Intake and Output 09/21/25 07:00 Intake Total 1790 ml Balance 1790 ml Intake Oral 1240 ml IV Total 550 ml # Voids 10 Exam GEN: Healthy appearing, well-developed, NAD. HEENT: NC/AT; MMM. CV: RRR, no m/r/g. LUNGS: CTAB, no w/r/c. ABD: Soft, NT/ND, NBS, no masses or organomegaly. EXT: skin Warm, well perfused. no rashes. No clubbing, cyanosis, or edema. NEURO: Ambulating with no limitations. No focal deficits. Medications Current Medications Medications Dose Ordered Sig/Toshia Route Start Time Stop Time Status Last Admin Dose Admin Acetaminophen/ Hydrocodone Bitart 1 tab Q4HP PRN PO 09/18/25 14:30 09/20/25 20:57 1 TAB Ondansetron HCl 4 mg Q4HP PRN IV 09/18/25 14:30 Docusate Sodium 100 mg BIDPRN PRN PO 09/18/25 14:30 09/19/25 21:13 100 MG Acetaminophen 650 mg Q6HP PRN PO 09/18/25 14:30 Nitroglycerin 0.4 mg Q5MINP PRN SL 09/18/25 14:30 Morphine Sulfate 2 mg Q30M PRN IV 09/18/25 14:30 Losartan Potassium 25 mg DAILY PO 09/19/25 10:00 09/21/25 09:55 25 MG Clonidine HCl 0.1 mg Q6HP PRN PO 09/18/25 15:00 09/18/25 20:30 0.1 MG Amlodipine Besylate 5 mg DAILY PO 09/19/25 10:00 09/21/25 09:54 5 MG Ceftriaxone Sodium 50 ml @ 100 mls/hr DAILY@09 IV 09/20/25 09:00 09/21/25 09:56 100 MLS/HR Azithromycin 250 ml @ 125 mls/hr TID IV 09/19/25 22:00 09/21/25 05:47 125 MLS/HR Gabapentin 100 mg BID PO 09/19/25 22:00 09/21/25 09:54 100 MG Laboratory Results Laboratory Tests 09/19/25 04:58 Urinalysis Test 09/18/25 11:04 Urine Color Light-yellow (Yellow) Urine Clarity Turbid (Clear) H Urine pH 7.0 (5.0-9.0) Urine Specific [place] 1.023 (1.001-1.035) Urine Protein Negative (Negative) Urine Ketones Negative (Negative) Urine Blood 3+ /uL (Negative) H Urine Nitrite Negative (Negative) Urine Bilirubin Negative (Negative) Urine Urobilinogen Normal mg/dL (Negative) Urine Leukocyte Esterase Negative /uL (Negative) Urine RBC 341 /hpf (0 - 4) Urine Microscopic WBC 2 /HPF (0-5) Urine Squamous Epithelial Cells Few /hpf (<5) Urine Amorphous Crystals Few /hpf (None Seen) Urine Bacteria Many /hpf (None Seen) H Urine Yeast (Budding) Moderate /hpf (None Seen) Urine Glucose Normal mg/dL (Normal) Urine Test Negative (Negative) Labs and/or images reviewed: Labs reviewed by me, Image(s) reviewed by me Assessment/Plan Assessment/Plan 40-year-old female with past medical history of hypertension, who came to the hospital for shortness of breath and cough. Patient states she has been experiencing bloody noses, cough, hemoptysis, decreased appetite, and fatigue for almost 2 weeks. She states she her symptoms have worsened with shortness of breath when laying down, and she is propping herself up with pillows to sleep. 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 We will have to do TB ruled out,, AFP smear stents 3, IgA RA, start antibiotics azithromycin ceftriaxone,. Nebulizers prn. Continue blood pressure medications. For her peripheral neuropathy start gabapentin 100 mg 2 times daily. We will also get CT chest. Echocardiogram pending 09/20: CT showing right middle lobe subpleural 5 mm nodule. EAP sample was sent today, to monitor for next 2 days. Patient wants to leave. Encourage patient to stay. We will likely need palm consult 09/21: Patient feels good healthy, pulmonology wants to do bronchoscopy outpatient and quantify hemoptysis. Patient is not having any hemoptysis almost at all. No urgent plan for subpleural nodule. Patient does not want to stay if admission is not absolutely necessary. We will consult Infectious Disease, possibly get 1 more 3rd EAP smear tomorrow a.m. and have either ID or Health Department follow up on the results. Patient appears healthy no significant cough no significant hemoptysis. She does not have a PCP, we will put in emergency care attendant consult today.. Diagnosis: Hypertensive urgency, Hemoptysis, TB ruled out Pneumonia , possible, community-acquired, Gram-negative/Gram-positive likely. Paraesthesia, ? Peripheral neuropathy Plan: Ceftriaxone Azithromycin For blood pressure losartan 25, amlodipine 5 Gabapentin 100 mg 2 times daily AFB smears Continue other home medications TV isolation, until ruled out Tele Full code Plan discussed with: Patient My Orders Orders - REKHA OCHOA MD Procedure Category Date Status Time *Consult CONS 09/20/25 Transmitted 13:00 Quantiferon-[facility] 09/20/25 In Process 13:13 * Infectious Lonnie- Dr. CONS 09/21/25 Transmitted [facility] 10:22 Date of Service: Sep 21, 2025 Billing Provider: REKHA OCHOA MD Common Visit Codes: [id number] INP/OBS CARE(HIGH) REKHA OCHOA MD Sep 21, 2025 10:36
--- NOTE | 2025-09-21 22:28 | DVHPN2 ---
Subjective DOS: 09/21/2025 Patient seen and examined at bedside. Breathing comfortably on room air. Overnight events reviewed. Reviewed: H&P Changes from previous H/P or p: No Changes General: Per HPI Eyes: No Pain, No Vision change, No Conjunctivae inflammation, No Eyelid inflammation, No Other, No Redness ENT: No Ear pain, No Ear discharge, No Nose pain, No Nose discharge, No Nose congestion, No Mouth pain, No Mouth swelling, No Throat pain, No Throat swelling, No Other Cardiovascular: No Chest Pain, No Palpitations, No Orthopnea, No Paroxysmal Noc. Dyspnea, No Edema, No Lt Headedness, No Other Respiratory: Cough; No Dry; Shortness of breath; No SOB with excertion, No Wheezing; Hemoptysis; No Pleuritic Pain, No Sputum, No Other Gastrointestinal: No Nausea, No Vomiting, No Abdominal Pain, No Diarrhea, No Constipation, No Melena, No Hematochezia, No Other Genitourinary: No Dysuria, No Frequency, No Incontinence, No Hematuria, No Retention, No Other Musculoskeletal: No other, No neck pain, No shoulder pain, No arm pain, No back pain, No hand pain, No leg pain, No foot pain Skin: No Rash, No Lesions, No Jaundice, No Bruising, No Other Objective Vitals Vital Signs Date Time Temp Pulse Resp B/P (MAP) Pulse Ox O2 Delivery O2 Flow Rate FiO2 09/21/25 21:00 98.4 91 17 133/85 (101) 98 98.4 09/21/25 08:00 Room Air* 0 21 Intake/Output Intake and Output 09/21/25 06:59 Intake Total 1790 ml Balance 1790 ml Intake Oral 1240 ml IV Total 550 ml # Voids 10 Exam Gen.: Patient lying in bed in no apparent distress. Breathing on room air. Head: Normocephalic, atraumatic. Eyes: EOMI/PERRLA. Ears: Normal hearing. Normal anatomy. Neck/trachea: Trachea midline, supple. Nose: Normal external anatomy. Mouth: Moist mucous membranes. Chest: Decreased air entry bilaterally. No wheezing or rhonchi. Cardiovascular: Positive S1, positive S2. Regular rate and rhythm. Abdomen: Positive bowel sounds in all 4 quadrants. Soft, non-tender, non- distended. : Deferred. Rectal: Deferred. Skin: Warm, dry. Intact. Extremities: 2+ radial pulses bilaterally. No lower extremity edema. Neuro: Awake, alert, oriented x3. No gross motor or sensory deficits. Cranial nerves II through XII intact. Gait not assessed. Medications Current Medications Medications Dose Ordered Sig/Toshia Route Start Time Stop Time Status Last Admin Dose Admin Acetaminophen/ Hydrocodone Bitart 1 tab Q4HP PRN PO 09/18/25 14:30 09/20/25 20:57 1 TAB Ondansetron HCl 4 mg Q4HP PRN IV 09/18/25 14:30 Docusate Sodium 100 mg BIDPRN PRN PO 09/18/25 14:30 09/19/25 21:13 100 MG Acetaminophen 650 mg Q6HP PRN PO 09/18/25 14:30 Nitroglycerin 0.4 mg Q5MINP PRN SL 09/18/25 14:30 Morphine Sulfate 2 mg Q30M PRN IV 09/18/25 14:30 Losartan Potassium 25 mg DAILY PO 09/19/25 10:00 09/21/25 09:55 25 MG Clonidine HCl 0.1 mg Q6HP PRN PO 09/18/25 15:00 09/18/25 20:30 0.1 MG Amlodipine Besylate 5 mg DAILY PO 09/19/25 10:00 09/21/25 09:54 5 MG Ceftriaxone Sodium 50 ml @ 100 mls/hr DAILY@09 IV 09/20/25 09:00 09/21/25 09:56 100 MLS/HR Azithromycin 250 ml @ 125 mls/hr TID IV 09/19/25 22:00 09/21/25 13:56 125 MLS/HR Gabapentin 100 mg BID PO 09/19/25 22:00 09/21/25 09:54 100 MG Laboratory Results Laboratory Tests 09/19/25 04:58 Urinalysis Test 09/18/25 11:04 Urine Color Light-yellow (Yellow) Urine Clarity Turbid (Clear) H Urine pH 7.0 (5.0-9.0) Urine Specific [place] 1.023 (1.001-1.035) Urine Protein Negative (Negative) Urine Ketones Negative (Negative) Urine Blood 3+ /uL (Negative) H Urine Nitrite Negative (Negative) Urine Bilirubin Negative (Negative) Urine Urobilinogen Normal mg/dL (Negative) Urine Leukocyte Esterase Negative /uL (Negative) Urine RBC 341 /hpf (0 - 4) Urine Microscopic WBC 2 /HPF (0-5) Urine Squamous Epithelial Cells Few /hpf (<5) Urine Amorphous Crystals Few /hpf (None Seen) Urine Bacteria Many /hpf (None Seen) H Urine Yeast (Budding) Moderate /hpf (None Seen) Urine Glucose Normal mg/dL (Normal) Urine Test Negative (Negative) Microbiology Microbiology Date/Time Source Procedure Growth Status 09/20/25 07:49 Sputum AFB Broth Culture Pending Resulted 09/20/25 07:49 Sputum - Final Resulted 09/20/25 07:49 Sputum - Final Resulted 09/20/25 07:49 Sputum Acid Fast Bacilli Culture Pending Resulted Assessment/Plan Assessment/Plan Impression: Hemoptysis, resolved. Pulmonary nodule Rule out Tuberculosis. Pleural effusion Atelectasis Obesity Events: Breathing on room air Supplemental oxygen PRN Continue antibiotics Incentive spirometry AFB smear pending. Sputum cultures show normal oropharyngeal chava. Hemoptysis is resolved. Labs and imaging reviewed. Rest of plan as noted below. Plan: Supplemental oxygen PRN Titrate to keep O2 sats above 92%. Pt noted on imaging to have pulmonary nodule, likely reactive. Chest CT on 09/19/25 demonstrates mild cardiomegaly and miniscule left pleural effusion. Tiny sub 5 mm anterior subpleural right middle lobe pulmonary nodule, likely postinfectious or postinflammatory. Mildly prominent bilateral axillary lymph nodes and mild skin thickening of the axilla bilaterally, partially imaged. Obtain QuantiFERON AFB smear x1 Obtain a total of 3 AFB smears. Consider bronchoscopy once active TB ruled out/AFB smears negative x3. Continue antibiotics Incentive spirometry Monitor renal function. Monitor electrolytes. Supplement as necessary. Monitor ins and outs. Recommend diet and lifestyle modifications for weight reduction Obesity complicates all care DVT prophylaxis. Prognosis: Guarded given patient's multiple co-morbidities. Rest of plan per hospitalist and other consultants. Thank you, Dr. Dominique, for allowing me to participate in this patient's care. Further recommendations will depend on the patient's clinical course. Please do not hesitate to contact me if you have any questions or concerns. This medical document was created using an electronic medical record system with [employer] dictation system. Although these documentations are being carefully reviewed, there may still be some phonetic and typographical changes. The errors are purely typographical, due to imperfection on the software program, and do not reflect any compromise in the patient's medical care. Plan discussed with: Patient, Other (RN Nely) Visit Coding Pulmonary Billing Provider: MICHEAL VOGT MD Date of Service if different f: Sep 21, 2025 Common Visit Codes: [id number] INP/OBS CARE(HIGH) MICHEAL VOGT MD Sep 21, 2025 22:28
[2025-09-22] VITALS (8 sets, daily range): BP systolic 113–141; BP diastolic 70–93; PULSE 71–97; RESP 16–18; TEMP 97.6–98.9; O2SAT 97–99
--- NOTE | 2025-09-22 11:02 | DVHPN2 ---
Subjective Doing well No hemoptysis No shortness of breaths AFB samples 1 negative so far Reviewed: H&P Changes from previous H/P or p: Changes General: Per HPI Eyes: No Pain, No Vision change, No Conjunctivae inflammation, No Eyelid inflammation, No Other, No Redness ENT: No Ear pain, No Ear discharge, No Nose pain, No Nose discharge, No Nose congestion, No Mouth pain, No Mouth swelling, No Throat pain, No Throat swelling, No Other Cardiovascular: No Chest Pain, No Palpitations, No Orthopnea, No Paroxysmal Noc. Dyspnea, No Edema, No Lt Headedness, No Other Respiratory: Cough; No Dry; Shortness of breath; No SOB with excertion, No Wheezing; Hemoptysis; No Pleuritic Pain, No Sputum, No Other Gastrointestinal: No Nausea, No Vomiting, No Abdominal Pain, No Diarrhea, No Constipation, No Melena, No Hematochezia, No Other Genitourinary: No Dysuria, No Frequency, No Incontinence, No Hematuria, No Retention, No Other Musculoskeletal: No other, No neck pain, No shoulder pain, No arm pain, No back pain, No hand pain, No leg pain, No foot pain Skin: No Rash, No Lesions, No Jaundice, No Bruising, No Other Objective Vitals Vital Signs Date Time Temp Pulse Resp B/P (MAP) Pulse Ox O2 Delivery O2 Flow Rate FiO2 09/22/25 09:21 141/93 09/22/25 09:00 98.5 93 17 97 98.5 09/22/25 08:00 Room Air* 0 21 Intake/Output Intake and Output 09/22/25 07:00 Intake Total 2090 ml Balance 2090 ml Intake Oral 1540 ml IV Total 550 ml # Voids 12 # Bowel Movements 2 General Appearance: Alert, Oriented X3, Cooperative, No acute distress Lungs: Clear to auscultation, Normal air movement Cardiovascular: Regular rate, Normal S1, Normal S2 Abdomen: Normal bowel sounds, Soft, No tenderness Extremities: No edema Medications Current Medications Medications Dose Ordered Sig/Toshia Route Start Time Stop Time Status Last Admin Dose Admin Acetaminophen/ Hydrocodone Bitart 1 tab Q4HP PRN PO 09/18/25 14:30 09/20/25 20:57 1 TAB Ondansetron HCl 4 mg Q4HP PRN IV 09/18/25 14:30 Docusate Sodium 100 mg BIDPRN PRN PO 09/18/25 14:30 09/19/25 21:13 100 MG Acetaminophen 650 mg Q6HP PRN PO 09/18/25 14:30 Nitroglycerin 0.4 mg Q5MINP PRN SL 09/18/25 14:30 Morphine Sulfate 2 mg Q30M PRN IV 09/18/25 14:30 Losartan Potassium 25 mg DAILY PO 09/19/25 10:00 09/22/25 09:20 25 MG Clonidine HCl 0.1 mg Q6HP PRN PO 09/18/25 15:00 09/18/25 20:30 0.1 MG Amlodipine Besylate 5 mg DAILY PO 09/19/25 10:00 09/22/25 09:21 5 MG Ceftriaxone Sodium 50 ml @ 100 mls/hr DAILY@09 IV 09/20/25 09:00 09/22/25 09:19 100 MLS/HR Azithromycin 250 ml @ 125 mls/hr TID IV 09/19/25 22:00 09/22/25 05:46 125 MLS/HR Gabapentin 100 mg BID PO 09/19/25 22:00 09/22/25 09:20 100 MG Laboratory Results Laboratory Tests 09/19/25 04:58 Urinalysis Test 09/18/25 11:04 Urine Color Light-yellow (Yellow) Urine Clarity Turbid (Clear) H Urine pH 7.0 (5.0-9.0) Urine Specific [place] 1.023 (1.001-1.035) Urine Protein Negative (Negative) Urine Ketones Negative (Negative) Urine Blood 3+ /uL (Negative) H Urine Nitrite Negative (Negative) Urine Bilirubin Negative (Negative) Urine Urobilinogen Normal mg/dL (Negative) Urine Leukocyte Esterase Negative /uL (Negative) Urine RBC 341 /hpf (0 - 4) Urine Microscopic WBC 2 /HPF (0-5) Urine Squamous Epithelial Cells Few /hpf (<5) Urine Amorphous Crystals Few /hpf (None Seen) Urine Bacteria Many /hpf (None Seen) H Urine Yeast (Budding) Moderate /hpf (None Seen) Urine Glucose Normal mg/dL (Normal) Urine Test Negative (Negative) Microbiology Microbiology Date/Time Source Procedure Growth Status 09/20/25 07:49 Sputum AFB Broth Culture Pending Resulted 09/20/25 07:49 Sputum - Final Resulted 09/20/25 07:49 Sputum - Final Resulted 09/20/25 07:49 Sputum Acid Fast Bacilli Culture Pending Resulted Assessment/Plan Assessment/Plan Hypertensive urgency Hemoptysis Rule out tuberculosis Pneumonia Pulmonary nodule Plan Continue to check sputum for AFB IV antibiotics Rocephin and Zithromax Monitor closely Plan discussed with: Patient Date of Service: Sep 22, 2025 Billing Provider: TEDDY GAMBLE MD Common Visit Codes: [id number] INP/OBS CARE(HIGH) TEDDY GAMBLE MD Sep 22, 2025 11:02
--- NOTE | 2025-09-22 22:59 | DVHPN2 ---
Subjective DOS: 09/22/2025 Patient seen and examined at bedside. Breathing comfortably on room air. Overnight events reviewed. Reviewed: H&P Changes from previous H/P or p: No Changes General: Per HPI Eyes: No Pain, No Vision change, No Conjunctivae inflammation, No Eyelid inflammation, No Other, No Redness ENT: No Ear pain, No Ear discharge, No Nose pain, No Nose discharge, No Nose congestion, No Mouth pain, No Mouth swelling, No Throat pain, No Throat swelling, No Other Cardiovascular: No Chest Pain, No Palpitations, No Orthopnea, No Paroxysmal Noc. Dyspnea, No Edema, No Lt Headedness, No Other Respiratory: Cough; No Dry; Shortness of breath; No SOB with excertion, No Wheezing; Hemoptysis; No Pleuritic Pain, No Sputum, No Other Gastrointestinal: No Nausea, No Vomiting, No Abdominal Pain, No Diarrhea, No Constipation, No Melena, No Hematochezia, No Other Genitourinary: No Dysuria, No Frequency, No Incontinence, No Hematuria, No Retention, No Other Musculoskeletal: No other, No neck pain, No shoulder pain, No arm pain, No back pain, No hand pain, No leg pain, No foot pain Skin: No Rash, No Lesions, No Jaundice, No Bruising, No Other Objective Vitals Vital Signs Date Time Temp Pulse Resp B/P (MAP) Pulse Ox O2 Delivery O2 Flow Rate FiO2 09/22/25 21:00 97.8 91 17 136/83 (100) 98 97.8 09/22/25 20:00 Room Air* 0 21 Intake/Output Intake and Output 09/22/25 07:00 Intake Total 2090 ml Balance 2090 ml Intake Oral 1540 ml IV Total 550 ml # Voids 12 # Bowel Movements 2 Exam Gen.: Patient lying in bed in no apparent distress. Breathing on room air. Head: Normocephalic, atraumatic. Eyes: EOMI/PERRLA. Ears: Normal hearing. Normal anatomy. Neck/trachea: Trachea midline, supple. Nose: Normal external anatomy. Mouth: Moist mucous membranes. Chest: Decreased air entry bilaterally. No wheezing or rhonchi. Cardiovascular: Positive S1, positive S2. Regular rate and rhythm. Abdomen: Positive bowel sounds in all 4 quadrants. Soft, non-tender, non- distended. : Deferred. Rectal: Deferred. Skin: Warm, dry. Intact. Extremities: 2+ radial pulses bilaterally. No lower extremity edema. Neuro: Awake, alert, oriented x3. No gross motor or sensory deficits. Cranial nerves II through XII intact. Gait not assessed. General Appearance: Alert, Oriented X3, Cooperative, No acute distress Lungs: Clear to auscultation, Normal air movement Cardiovascular: Regular rate, Normal S1, Normal S2 Abdomen: Normal bowel sounds, Soft, No tenderness Extremities: No edema Medications Current Medications Medications Dose Ordered Sig/Toshia Route Start Time Stop Time Status Last Admin Dose Admin Acetaminophen/ Hydrocodone Bitart 1 tab Q4HP PRN PO 09/18/25 14:30 09/20/25 20:57 1 TAB Ondansetron HCl 4 mg Q4HP PRN IV 09/18/25 14:30 Docusate Sodium 100 mg BIDPRN PRN PO 09/18/25 14:30 09/19/25 21:13 100 MG Acetaminophen 650 mg Q6HP PRN PO 09/18/25 14:30 Nitroglycerin 0.4 mg Q5MINP PRN SL 09/18/25 14:30 Morphine Sulfate 2 mg Q30M PRN IV 09/18/25 14:30 Losartan Potassium 25 mg DAILY PO 09/19/25 10:00 09/22/25 09:20 25 MG Clonidine HCl 0.1 mg Q6HP PRN PO 09/18/25 15:00 09/18/25 20:30 0.1 MG Amlodipine Besylate 5 mg DAILY PO 09/19/25 10:00 09/22/25 09:21 5 MG Ceftriaxone Sodium 50 ml @ 100 mls/hr DAILY@09 IV 09/20/25 09:00 09/22/25 09:19 100 MLS/HR Azithromycin 250 ml @ 125 mls/hr TID IV 09/19/25 22:00 09/22/25 22:09 125 MLS/HR Gabapentin 100 mg BID PO 09/19/25 22:00 09/22/25 22:08 100 MG Laboratory Results Laboratory Tests 09/19/25 04:58 Urinalysis Test 09/18/25 11:04 Urine Color Light-yellow (Yellow) Urine Clarity Turbid (Clear) H Urine pH 7.0 (5.0-9.0) Urine Specific [place] 1.023 (1.001-1.035) Urine Protein Negative (Negative) Urine Ketones Negative (Negative) Urine Blood 3+ /uL (Negative) H Urine Nitrite Negative (Negative) Urine Bilirubin Negative (Negative) Urine Urobilinogen Normal mg/dL (Negative) Urine Leukocyte Esterase Negative /uL (Negative) Urine RBC 341 /hpf (0 - 4) Urine Microscopic WBC 2 /HPF (0-5) Urine Squamous Epithelial Cells Few /hpf (<5) Urine Amorphous Crystals Few /hpf (None Seen) Urine Bacteria Many /hpf (None Seen) H Urine Yeast (Budding) Moderate /hpf (None Seen) Urine Glucose Normal mg/dL (Normal) Urine Test Negative (Negative) Microbiology Microbiology Date/Time Source Procedure Growth Status 09/21/25 07:07 Sputum AFB Broth Culture Pending Resulted 09/21/25 07:07 Sputum - Final Resulted 09/21/25 07:07 Sputum - Final Resulted 09/21/25 07:07 Sputum Acid Fast Bacilli Culture Pending Resulted Assessment/Plan Assessment/Plan Impression: Hemoptysis, resolved. Pulmonary nodule Rule out Tuberculosis. Pleural effusion Atelectasis Obesity Events: Breathing on room air Supplemental oxygen PRN Continue antibiotics Incentive spirometry Awaiting AFB smear and QuantiFERON for TB rule out Sputum cultures show normal oropharyngeal chava. Hemoptysis is resolved. Recommend repeat CT chest with contrast. Labs and imaging reviewed. Rest of plan as noted below. Plan: Supplemental oxygen PRN Titrate to keep O2 sats above 92%. Pt noted on imaging to have pulmonary nodule, likely reactive. Chest CT on 09/19/25 demonstrates mild cardiomegaly and miniscule left pleural effusion. Tiny sub 5 mm anterior subpleural right middle lobe pulmonary nodule, likely postinfectious or postinflammatory. Mildly prominent bilateral axillary lymph nodes and mild skin thickening of the axilla bilaterally, partially imaged. Follow up QuantiFERON Obtain a total of 3 AFB smears. Follow up results Consider bronchoscopy once active TB ruled out/AFB smears negative x3. Continue antibiotics Incentive spirometry Monitor renal function. Monitor electrolytes. Supplement as necessary. Monitor ins and outs. Recommend diet and lifestyle modifications for weight reduction Obesity complicates all care DVT prophylaxis. Prognosis: Guarded given patient's multiple co-morbidities. Rest of plan per hospitalist and other consultants. Thank you, Dr. Dominique, for allowing me to participate in this patient's care. Further recommendations will depend on the patient's clinical course. Please do not hesitate to contact me if you have any questions or concerns. This medical document was created using an electronic medical record system with [employer] dictation system. Although these documentations are being carefully reviewed, there may still be some phonetic and typographical changes. The errors are purely typographical, due to imperfection on the software program, and do not reflect any compromise in the patient's medical care. Plan discussed with: Patient, Other (RN Guillermina) Visit Coding Pulmonary Billing Provider: MICHEAL VOGT MD Date of Service if different f: Sep 22, 2025 Common Visit Codes: [id number] INP/OBS CARE(HIGH) MICHEAL VOGT MD Sep 22, 2025 22:59
--- NOTE | 2025-09-22 23:56 | DVHINCON2 ---
Date of service: Sep 21, 2025 Family History: Hypertension G8 MOTHER, Onset:Unknown Allergies: Coded Allergies: NO KNOWN ALLERGIES (Unverified , 09/18/25) Home Meds Reported Medications Losartan Potassium (Losartan Potassium) 25 Mg Tab, 1 TAB PO DAILY 09/18/25 Vital Signs Vital Signs Date Time Temp Pulse Resp B/P (MAP) Pulse Ox O2 Delivery O2 Flow Rate FiO2 09/22/25 21:00 97.8 91 17 136/83 (100) 98 97.8 09/22/25 20:00 Room Air* 0 21 Labs/Diagnostic Data Labs Test 09/21/25 07:07 09/20/25 13:26 09/19/25 04:58 09/18/25 15:47 Range/Units Miscellaneous Referred Test (Refrg) Sent to [facility] White Blood Count 5.7 4.4-10.8 10^3/uL Red Blood Count 4.85 4.0-5.20 10^6/uL Hemoglobin 14.7 12.2-16.2 g/dL Hematocrit 42.6 36.0-46.0 % Mean Corpuscular Volume 87.8 80.0-100.0 fL Mean Corpuscular Hemoglobin 30.4 28.0-32.0 pg Mean Corpuscular Hemoglobin Concent 34.6 32.0-36.0 g/dL Red Cell Distribution Width 12.5 11.8-14.3 % Platelet Count 217 140-450 10^3/uL Mean Platelet Volume 8.3 6.9-10.8 fL Neutrophils (%) (Auto) 47.0 37.0-80.0 % Lymphocytes (%) (Auto) 42.9 10.0-50.0 % Monocytes (%) (Auto) 8.6 0.0-12.0 % Eosinophils (%) (Auto) 1.1 0.0-7.0 % Basophils (%) (Auto) 0.4 0.0-2.0 % Neutrophils # (Auto) 2.7 1.6-8.6 10 ^3/uL Lymphocytes # (Auto) 2.4 0.4-5.4 10 ^3/uL Monocytes # (Auto) 0.5 0-1.3 10 ^3/uL Eosinophils # (Auto) 0.1 0-0.8 10 ^3/uL Basophils # (Auto) 0 0-0.2 10 ^3/uL Nucleated Red Blood Cells 0.1 % Sodium Level 139 136-145 mmol/L Potassium Level 3.7 3.5-5.1 mmol/L Chloride Level 103 98-107 mmol/L Carbon Dioxide Level 28 20-31 mmol/L Anion Gap 8 5-15 Blood Urea Nitrogen 11 9-23 mg/dL Creatinine 0.76 0.550-1.02 mg/dL Glomerular Filtration Rate Calc 102 >90 mL/min BUN/Creatinine Ratio 14.5 10.0-20.0 Serum Glucose 85 74-106 mg/dL Calcium Level 9.6 8.7-10.4 mg/dL Total Bilirubin 0.6 0.2-1.0 mg/dL Aspartate Amino Transferase (AST) 22 13-40 U/L Alanine Aminotransferase (ALT) 35 7-40 U/L Alkaline Phosphatase 61 46-116 U/L Total Protein 7.6 5.7-8.2 g/dL Albumin 4.4 3.2-4.8 g/dL Influenza Type A Antigen Negative Negative Influenza Type B Antigen Negative Negative SARS-CoV-2 Antigen (Rapid) Negative NEGATIVE Test 09/18/25 14:44 09/18/25 11:04 Range/Units Troponin I High Sensitivity 4 </=34 ng/L Urine Color Light-yellow Yellow Urine Clarity Turbid H Clear Urine pH 7.0 5.0-9.0 Urine Specific [place] 1.023 1.001-1.035 Urine Protein Negative Negative Urine Ketones Negative Negative Urine Blood 3+ H Negative /uL Urine Nitrite Negative Negative Urine Bilirubin Negative Negative Urine Urobilinogen Normal Negative mg/dL Urine Leukocyte Esterase Negative Negative /uL Urine RBC 341 0 - 4 /hpf Urine Microscopic WBC 2 0-5 /HPF Urine Squamous Epithelial Cells Few <5 /hpf Urine Amorphous Crystals Few None Seen /hpf Urine Bacteria Many H None Seen /hpf Urine Yeast (Budding) Moderate None Seen /hpf Urine Glucose Normal Normal mg/dL Urine Test Negative Negative Microbiology Date/Time Source Procedure Growth Status 09/21/25 07:07 Sputum AFB Broth Culture Pending Resulted 09/21/25 07:07 Sputum - Final Resulted 09/21/25 07:07 Sputum - Final Resulted 09/21/25 07:07 Sputum Acid Fast Bacilli Culture Pending Resulted Problems(with codes): (1) Positive QuantiFERON-TB Gold test (2) Pulmonary nodule (3) Hemoptysis (4) Pneumonia (5) Hypertensive urgency (6) Numbness of left foot (7) Generalized weakness Plan/Recommendation ASSESSMENT AND PLAN: ID Problem List: -Community-acquired pneumonia (presumed bacterial) -Hemoptysis and epistaxis in the setting of hypertensive urgency -Hypertension -Positive QuantiFERON-TB Gold; tuberculosis rule-out in progress -Chronic cough with mild weight loss and decreased appetite (2 weeks) -Sub-5 mm right middle lobe subpleural pulmonary nodules (likely postinfectious/postinflammatory) -Mild cardiomegaly; minuscule left pleural effusion on CT chest -Prominent bilateral axillary lymph nodes; mild axillary skin thickening; mild folliculitis on exam -Mild splenomegaly -Left heel numbness/tingling Assessment: This is a 40 y.o. female with a history of hypertension presenting with 2 weeks of cough, shortness of breath, epistaxis, hemoptysis, decreased appetite, fatigue, and mild weight loss. She also reports left heel numbness/tingling requiring pillow support at night. She is an immigrant from [facility] (~10 years ago), has a history of BCG vaccination, works in health care, denies sick contacts, recent travel, smoking, and drug use. On admission: T 98.5F; RR 18; BP 141/105; SpO2 98% RA. A separate reading noted BP up to 189/29. Labs: WBC 4.8, Hgb 14.8, Plt 221, Na 140, BUN 8, Cr 0.75. I maging: CXR without acute thoracic abnormality. CT chest shows mild cardiomegaly, minuscule left pleural effusion, no airspace consolidation, sub-5 mm anterior subpleural RML nodules (likely postinfectious/postinflammatory), prominent bilateral axillary lymph nodes with mild axillary skin thickening, and mild splenomegaly. Exam notable for mild crackles at the right lung base; axil lae appear benign with mild folliculitis. QuantiFERON-TB Gold positive (Ag1 and Ag2 >10 with mitogen response). Influenza A/B negative; COVID-19 negative. Bacterial sputum culture pending with no growth to date. AFB sputums collected x2 to date with preliminary stains negative. She was started empirically on ceftriaxone and azithromycin. Plan: -Community-acquired pneumonia: -Continue ceftriaxone and azithromycin as initiated. -Monitor clinical status and culture results; adjust antibiotics per results and response. -Tuberculosis rule-out (given positive IGRA, healthcare exposure risk, chronic cough/weight loss): -Obtain AFB sputum x3 (two collected to date; continue to three total). -MTB PCR x2 on respiratory specimens. -Continue to follow AFB cultures and PCRs. -Notify local Department of Public Health and coordinate for safe discharge planning per TB protocols. -No empiric TB therapy at this time given two negative AFB stains so far and low overall concern per current data; reassess as additional results return. -Additional infectious evaluations: -HIV testing and acute hepatitis screening prior to discharge. -Serologies for coccidioidomycosis and Aspergillus antibodies given CT nodularity. -Hypertension/hemoptysis-epistaxis: -Hemoptysis likely from epistaxis in the setting of severe hypertensive urgency. -Refer to primary care for management of hypertensive urgency. -Continue to monitor blood pressure and bleeding. -Left heel numbness/tingling: -Foot X-ray normal; continue supportive measures; consider further evaluation if persistent or progressive. -Follow-up: -Infectious Disease clinic follow-up in 1 month to review culture/AFB/P CR/serology results and determine need for treatment if TB or other infection confirmed. Isolation Precautions: Not specified in transcript. HISTORY: History obtained from: Not specified in transcript. Ms. Blanche Velasco is a 40 y.o. female with hypertension presenting with cough, shortness of breath, epistaxis, hemoptysis, decreased appetite, fatigue, and mild weight loss for approximately two weeks. She reports left heel numbness/tingling requiring pillow support at night. She is an immigrant from [place] (~10 years ago), has had BCG vaccination, and works in health care. She denies sick contacts, recent travel, smoking, and drug use. She was started empirically on ceftriaxone and azithromycin. Vital signs on admission notable for BP 141/105 and SpO2 98% on room air; a separate blood pressure was reported as high as 189/29. Laboratory studies are notable for normal WBC (4.8), normal hemoglobin and platelets, normal basic metabolic panel. Imaging includes a normal CXR and CT chest demonstrating mild cardiomegaly, minuscule left pleural effusion, sub-5 mm RML subpleural nodules (likely postinfectious/postinflammatory), prominent bilateral axillary lymph nodes with mild axillary skin thickening, and mild splenomegaly. Exam shows mild crackles at the right lung base and benign-appearing axillae with mild folliculitis. QuantiFERON-TB Gold is positive; influenza A/B and COVID-19 are negative. Bacterial sputum culture is pending (no growth to date). AFB sputums x2 have preliminary negative stains, with additional testing planned (AFB x3, MTB PCR x2). Additional testing planned includes HIV, acute hepatitis screen, and fungal serologies (cocci, Aspergillus). Public health notification and coordinated discharge planning are planned per TB rule-out protocols. ID clinic follow-up in one month is recommended. REVIEW OF SYSTEMS: -Constitutional: Reports fatigue, decreased appetite, mild weight loss. -HEENT: Reports epistaxis. Denies sick contacts. No recent travel. -Respiratory: Reports cough, shortness of breath, hemoptysis. -Cardiovascular: Not discussed. -Gastrointestinal: Not discussed. -Genitourinary: Not discussed. -Musculoskeletal: Not discussed. -Skin: Mild axillary folliculitis noted on exam. -Neurological: Reports left heel numbness/tingling. -Psychiatric: Not discussed. -Endocrine/Heme/Allergy: Not discussed. PAST MEDICAL HISTORY: -Hypertension PAST SURGICAL HISTORY: -Not provided in transcript. HOME MEDICATIONS: -Not provided in transcript. ALLERGIES: -Not provided in transcript. FAMILY HISTORY: -Not provided in transcript. SOCIAL HISTORY: -Tobacco: No smoking history. -Alcohol: Not discussed. -Illicit drugs: Not a drug user. -Occupation: Works in health care. -Travel: No recent travel. -Sick contacts: Denies. -Country of origin/BCG: Immigrant from [place] (~10 years ago); BCG vaccinated. OBJECTIVE: Vital Signs on Arrival: -Temperature: 98.5F -Pulse: Not clearly stated in transcript -Respiratory Rate: 18 -Blood Pressure: 141/105 -SpO2: 98% on room air Most Recent Vital Signs: -Not provided in transcript. Additional Recorded Vital Signs: -Blood pressure reported up to 189/29. Admission Weight and BMI: -Not provided in transcript. Physical Exam: General: NAD Neck: Supple. No masses. HEENT: PERRL. Normal lids and conjunctiva. Moist mucous membranes. Oropharynx without lesions, exudates or excessive erythema. Normal appearance of the external aspects of the nose and ears. Heart: Regular rhythm, normal rate. No murmur. No lower extremity edema. Lungs: Normal respiratory effort. Clear to auscultation bilaterally. Mild crackles at the right lung base. No wheezes. Abdomen: Soft. Non-tender. Non-distended. No masses or abdominal hernia. Msk: No digital cyanosis. Normal strength and tone in all 4 limbs Skin: Warm and dry, no rashes. Mild folliculitis in the axillae. Neuro: Alert. No facial droop or slurred speech. Extra-ocular movements intact. Sensation intact to soft touch in all 4 limbs. Psych: Appropriate mood. Full affect. Oriented to person, place, time, and situation. Lines: -Not provided in transcript. DIAGNOSTIC STUDIES: Available diagnostic studies were reviewed. Significant results are summarized below. Pertinent Laboratory/Diagnostic Tests: -CBC: WBC 4.8; Hemoglobin 14.8; Platelets 221. -BMP: Sodium 140; BUN 8; Creatinine 0.75. -QuantiFERON-TB Gold: Positive (antigen 1 and antigen 2 >10; mitogen response present). -Influenza A/B: Negative. -COVID-19: Negative. -Bacterial sputum culture: Collected; pending; no growth to date so far. -AFB sputum: Collected x2; preliminary stains negative. Additional AFBs to complete x3 and MTB PCR x2 planned. Pertinent Imaging: -Chest X-ray: No acute thoracic abnormality. -Left foot X-ray: No fracture or dislocation; no heel spurs. -CT Chest: Mild cardiomegaly; minuscule left pleural effusion; no airspace consolidation. Sub-5 mm anterior subpleural right middle lobe pulmonary nodules (likely postinfectious/postinflammatory). Prominent bilateral axillary lymph nodes with mild axillary skin thickening. Mild splenomegaly. Plan discussed with: Patient KRISTY WHEATLEY MD Sep 22, 2025 23:56
--- NOTE | 2025-09-22 23:56 | DVHPN2 ---
Consult Progress Note Objective vital signs Vital Sign Date Time Temp Pulse Resp B/P (MAP) Pulse Ox O2 Delivery O2 Flow Rate FiO2 09/22/25 21:00 97.8 91 17 136/83 (100) 98 97.8 09/22/25 20:00 Room Air* 0 21 Total Intake and Output 09/21/25 09/21/25 09/22/25 15:00 23:00 07:00 Intake Total 300 ml 1200 ml 590 ml Balance 300 ml 1200 ml 590 ml medications Current Medications Medications Dose Ordered Sig/Toshia Route Start Time Stop Time Status Last Admin Dose Admin Acetaminophen/ Hydrocodone Bitart 1 tab Q4HP PRN PO 09/18/25 14:30 09/20/25 20:57 Ondansetron HCl 4 mg Q4HP PRN IV 09/18/25 14:30 Docusate Sodium 100 mg BIDPRN PRN PO 09/18/25 14:30 09/19/25 21:13 Acetaminophen 650 mg Q6HP PRN PO 09/18/25 14:30 Nitroglycerin 0.4 mg Q5MINP PRN SL 09/18/25 14:30 Morphine Sulfate 2 mg Q30M PRN IV 09/18/25 14:30 Losartan Potassium 25 mg DAILY PO 09/19/25 10:00 09/22/25 09:20 Clonidine HCl 0.1 mg Q6HP PRN PO 09/18/25 15:00 09/18/25 20:30 Amlodipine Besylate 5 mg DAILY PO 09/19/25 10:00 09/22/25 09:21 Ceftriaxone Sodium 50 ml @ 100 mls/hr DAILY@09 IV 09/20/25 09:00 09/22/25 09:19 Azithromycin 250 ml @ 125 mls/hr TID IV 09/19/25 22:00 09/22/25 22:09 Gabapentin 100 mg BID PO 09/19/25 22:00 09/22/25 22:08 laboratory and microbiology Laboratory Tests 09/19/25 04:58 Test 09/19/25 04:58 Range/Units Serum Glucose 85 74-106 mg/dL KRISTY WHEATLEY MD Sep 22, 2025 23:56
[2025-09-23] VITALS (7 sets, daily range): BP systolic 125–142; BP diastolic 69–93; PULSE 72–112; RESP 16–18; TEMP 97.9–99.1; O2SAT 95–99
[2025-09-23] MEDS: MELATONIN 5 MG TAB PO ONE (00:31)
--- NOTE | 2025-09-23 14:04 | DVHPN2 ---
Subjective No new complaints Reviewed: H&P Changes from previous H/P or p: Changes General: Per HPI Eyes: No Pain, No Vision change, No Conjunctivae inflammation, No Eyelid inflammation, No Other, No Redness ENT: No Ear pain, No Ear discharge, No Nose pain, No Nose discharge, No Nose congestion, No Mouth pain, No Mouth swelling, No Throat pain, No Throat swelling, No Other Cardiovascular: No Chest Pain, No Palpitations, No Orthopnea, No Paroxysmal Noc. Dyspnea, No Edema, No Lt Headedness, No Other Respiratory: Cough; No Dry; Shortness of breath; No SOB with excertion, No Wheezing; Hemoptysis; No Pleuritic Pain, No Sputum, No Other Gastrointestinal: No Nausea, No Vomiting, No Abdominal Pain, No Diarrhea, No Constipation, No Melena, No Hematochezia, No Other Genitourinary: No Dysuria, No Frequency, No Incontinence, No Hematuria, No Retention, No Other Musculoskeletal: No other, No neck pain, No shoulder pain, No arm pain, No back pain, No hand pain, No leg pain, No foot pain Skin: No Rash, No Lesions, No Jaundice, No Bruising, No Other Objective Vitals Vital Signs Date Time Temp Pulse Resp B/P (MAP) Pulse Ox O2 Delivery O2 Flow Rate FiO2 09/23/25 13:00 98.9 85 16 128/69 (88) 97 98.9 09/23/25 08:00 Room Air* 0 21 Intake/Output Intake and Output 09/23/25 07:00 Intake Total 2550 ml Balance 2550 ml Intake Oral 2000 ml IV Total 550 ml # Voids 9 # Bowel Movements 1 General Appearance: Alert, Oriented X3, Cooperative, No acute distress Lungs: Clear to auscultation, Normal air movement Cardiovascular: Regular rate, Normal S1, Normal S2 Abdomen: Normal bowel sounds, Soft, No tenderness Extremities: No edema Medications Current Medications Medications Dose Ordered Sig/Toshia Route Start Time Stop Time Status Last Admin Dose Admin Acetaminophen/ Hydrocodone Bitart 1 tab Q4HP PRN PO 09/18/25 14:30 09/20/25 20:57 1 TAB Ondansetron HCl 4 mg Q4HP PRN IV 09/18/25 14:30 Docusate Sodium 100 mg BIDPRN PRN PO 09/18/25 14:30 09/19/25 21:13 100 MG Acetaminophen 650 mg Q6HP PRN PO 09/18/25 14:30 Nitroglycerin 0.4 mg Q5MINP PRN SL 09/18/25 14:30 Morphine Sulfate 2 mg Q30M PRN IV 09/18/25 14:30 Losartan Potassium 25 mg DAILY PO 09/19/25 10:00 09/23/25 09:24 25 MG Clonidine HCl 0.1 mg Q6HP PRN PO 09/18/25 15:00 09/18/25 20:30 0.1 MG Amlodipine Besylate 5 mg DAILY PO 09/19/25 10:00 09/23/25 09:25 5 MG Ceftriaxone Sodium 50 ml @ 100 mls/hr DAILY@09 IV 09/20/25 09:00 09/23/25 09:25 100 MLS/HR Azithromycin 250 ml @ 125 mls/hr TID IV 09/19/25 22:00 09/23/25 05:38 125 MLS/HR Gabapentin 100 mg BID PO 09/19/25 22:00 09/23/25 09:24 100 MG Laboratory Results Laboratory Tests 09/19/25 04:58 Urinalysis Test 09/18/25 11:04 Urine Color Light-yellow (Yellow) Urine Clarity Turbid (Clear) H Urine pH 7.0 (5.0-9.0) Urine Specific [place] 1.023 (1.001-1.035) Urine Protein Negative (Negative) Urine Ketones Negative (Negative) Urine Blood 3+ /uL (Negative) H Urine Nitrite Negative (Negative) Urine Bilirubin Negative (Negative) Urine Urobilinogen Normal mg/dL (Negative) Urine Leukocyte Esterase Negative /uL (Negative) Urine RBC 341 /hpf (0 - 4) Urine Microscopic WBC 2 /HPF (0-5) Urine Squamous Epithelial Cells Few /hpf (<5) Urine Amorphous Crystals Few /hpf (None Seen) Urine Bacteria Many /hpf (None Seen) H Urine Yeast (Budding) Moderate /hpf (None Seen) Urine Glucose Normal mg/dL (Normal) Urine Test Negative (Negative) Microbiology Microbiology Date/Time Source Procedure Growth Status 09/21/25 07:07 Sputum AFB Broth Culture Pending Resulted 09/21/25 07:07 Sputum - Final Resulted 09/21/25 07:07 Sputum - Final Resulted 09/21/25 07:07 Sputum Acid Fast Bacilli Culture Pending Resulted Assessment/Plan Assessment/Plan Hypertensive urgency Hemoptysis Rule out tuberculosis Pneumonia Pulmonary nodule Plan Continue to check sputum for AFB IV antibiotics Rocephin and Zithromax Monitor closely 09/23/2025: Continue current management We have to sputum samples withdrawal negative, the 3rd is still pending QuantiFERON is pending Plan discussed with: Patient Date of Service: Sep 23, 2025 Billing Provider: TEDDY GAMBLE MD Common Visit Codes: 76940-[id number] INP/OBS CARE(MOD) TEDDY GAMBLE MD Sep 23, 2025 14:04
--- NOTE | 2025-09-23 23:42 | DVHPN2 ---
Subjective DOS: 09/23/2025 Patient seen and examined at bedside. Breathing comfortably on room air. Overnight events reviewed. Reviewed: H&P Changes from previous H/P or p: No Changes General: Per HPI Eyes: No Pain, No Vision change, No Conjunctivae inflammation, No Eyelid inflammation, No Other, No Redness ENT: No Ear pain, No Ear discharge, No Nose pain, No Nose discharge, No Nose congestion, No Mouth pain, No Mouth swelling, No Throat pain, No Throat swelling, No Other Cardiovascular: No Chest Pain, No Palpitations, No Orthopnea, No Paroxysmal Noc. Dyspnea, No Edema, No Lt Headedness, No Other Respiratory: Cough; No Dry; Shortness of breath; No SOB with excertion, No Wheezing; Hemoptysis; No Pleuritic Pain, No Sputum, No Other Gastrointestinal: No Nausea, No Vomiting, No Abdominal Pain, No Diarrhea, No Constipation, No Melena, No Hematochezia, No Other Genitourinary: No Dysuria, No Frequency, No Incontinence, No Hematuria, No Retention, No Other Musculoskeletal: No other, No neck pain, No shoulder pain, No arm pain, No back pain, No hand pain, No leg pain, No foot pain Skin: No Rash, No Lesions, No Jaundice, No Bruising, No Other Objective Vitals Vital Signs Date Time Temp Pulse Resp B/P (MAP) Pulse Ox O2 Delivery O2 Flow Rate FiO2 09/23/25 21:00 97.9 93 18 139/81 (100) 98 97.9 09/23/25 20:00 Room Air* 0 21 Intake/Output Intake and Output 09/23/25 07:00 Intake Total 2550 ml Balance 2550 ml Intake Oral 2000 ml IV Total 550 ml # Voids 9 # Bowel Movements 1 Exam Gen.: Patient lying in bed in no apparent distress. Breathing on room air. Head: Normocephalic, atraumatic. Eyes: EOMI/PERRLA. Ears: Normal hearing. Normal anatomy. Neck/trachea: Trachea midline, supple. Nose: Normal external anatomy. Mouth: Moist mucous membranes. Chest: Decreased air entry bilaterally. No wheezing or rhonchi. Cardiovascular: Positive S1, positive S2. Regular rate and rhythm. Abdomen: Positive bowel sounds in all 4 quadrants. Soft, non-tender, non- distended. : Deferred. Rectal: Deferred. Skin: Warm, dry. Intact. Extremities: 2+ radial pulses bilaterally. No lower extremity edema. Neuro: Awake, alert, oriented x3. No gross motor or sensory deficits. Cranial nerves II through XII intact. Gait not assessed. General Appearance: Alert, Oriented X3, Cooperative, No acute distress Lungs: Clear to auscultation, Normal air movement Cardiovascular: Regular rate, Normal S1, Normal S2 Abdomen: Normal bowel sounds, Soft, No tenderness Extremities: No edema Medications Current Medications Medications Dose Ordered Sig/Toshia Route Start Time Stop Time Status Last Admin Dose Admin Acetaminophen/ Hydrocodone Bitart 1 tab Q4HP PRN PO 09/18/25 14:30 09/20/25 20:57 1 TAB Ondansetron HCl 4 mg Q4HP PRN IV 09/18/25 14:30 Docusate Sodium 100 mg BIDPRN PRN PO 09/18/25 14:30 09/19/25 21:13 100 MG Acetaminophen 650 mg Q6HP PRN PO 09/18/25 14:30 Nitroglycerin 0.4 mg Q5MINP PRN SL 09/18/25 14:30 Morphine Sulfate 2 mg Q30M PRN IV 09/18/25 14:30 Losartan Potassium 25 mg DAILY PO 09/19/25 10:00 09/23/25 09:24 25 MG Clonidine HCl 0.1 mg Q6HP PRN PO 09/18/25 15:00 09/18/25 20:30 0.1 MG Amlodipine Besylate 5 mg DAILY PO 09/19/25 10:00 09/23/25 09:25 5 MG Ceftriaxone Sodium 50 ml @ 100 mls/hr DAILY@09 IV 09/20/25 09:00 09/23/25 09:25 100 MLS/HR Azithromycin 250 ml @ 125 mls/hr TID IV 09/19/25 22:00 09/23/25 21:32 125 MLS/HR Gabapentin 100 mg BID PO 09/19/25 22:00 09/23/25 21:17 100 MG Laboratory Results Laboratory Tests 09/19/25 04:58 Urinalysis Test 09/18/25 11:04 Urine Color Light-yellow (Yellow) Urine Clarity Turbid (Clear) H Urine pH 7.0 (5.0-9.0) Urine Specific [place] 1.023 (1.001-1.035) Urine Protein Negative (Negative) Urine Ketones Negative (Negative) Urine Blood 3+ /uL (Negative) H Urine Nitrite Negative (Negative) Urine Bilirubin Negative (Negative) Urine Urobilinogen Normal mg/dL (Negative) Urine Leukocyte Esterase Negative /uL (Negative) Urine RBC 341 /hpf (0 - 4) Urine Microscopic WBC 2 /HPF (0-5) Urine Squamous Epithelial Cells Few /hpf (<5) Urine Amorphous Crystals Few /hpf (None Seen) Urine Bacteria Many /hpf (None Seen) H Urine Yeast (Budding) Moderate /hpf (None Seen) Urine Glucose Normal mg/dL (Normal) Urine Test Negative (Negative) Microbiology Microbiology Date/Time Source Procedure Growth Status 09/21/25 07:07 Sputum AFB Broth Culture Pending Resulted 09/21/25 07:07 Sputum - Final Resulted 09/21/25 07:07 Sputum - Final Resulted 09/21/25 07:07 Sputum Acid Fast Bacilli Culture Pending Resulted Assessment/Plan Assessment/Plan Impression: Hemoptysis, resolved. Pulmonary nodule Rule out Tuberculosis. Pleural effusion Atelectasis Obesity Events: Breathing on room air Supplemental oxygen PRN Continue antibiotics, complete course Incentive spirometry Sputum cultures show normal oropharyngeal chava. AFB smear x1 Awaiting results from 2 AFB smears and QuantiFERON for TB rule out Hemoptysis is resolved. Recommend repeat CT chest with contrast in 6-8 weeks. Labs and imaging reviewed. Rest of plan as noted below. Plan: Supplemental oxygen PRN Titrate to keep O2 sats above 92%. Pt noted on imaging to have pulmonary nodule, likely reactive. Chest CT on 09/19/25 demonstrates mild cardiomegaly and miniscule left pleural effusion. Tiny sub 5 mm anterior subpleural right middle lobe pulmonary nodule, likely postinfectious or postinflammatory. Mildly prominent bilateral axillary lymph nodes and mild skin thickening of the axilla bilaterally, partially imaged. Follow up QuantiFERON Obtain a total of 3 AFB smears. Follow up results Consider bronchoscopy once active TB ruled out/AFB smears negative x3. Continue antibiotics Incentive spirometry Monitor renal function. Monitor electrolytes. Supplement as necessary. Monitor ins and outs. Recommend diet and lifestyle modifications for weight reduction Obesity complicates all care DVT prophylaxis. Prognosis: Guarded given patient's multiple co-morbidities. Rest of plan per hospitalist and other consultants. Thank you, Dr. Dominique, for allowing me to participate in this patient's care. Further recommendations will depend on the patient's clinical course. Please do not hesitate to contact me if you have any questions or concerns. This medical document was created using an electronic medical record system with In[employer] dictation system. Although these documentations are being carefully reviewed, there may still be some phonetic and typographical changes. The errors are purely typographical, due to imperfection on the software program, and do not reflect any compromise in the patient's medical care. Plan discussed with: Patient, Other (RN Rachael) Visit Coding Pulmonary Billing Provider: MICHEAL VOGT MD Date of Service if different f: Sep 23, 2025 Common Visit Codes: [id number] INP/OBS CARE(HIGH) MICHEAL VOGT MD Sep 23, 2025 23:42
[2025-09-24 05:00] VITALS: BP 124/78; PULSE 92; RESP 17; TEMP 97.5; O2SAT 97
--- NOTE | 2025-09-24 07:59 | DVHSR ---
APPROVED REPORT EXAM: Two-dimensional and M-mode echocardiogram with Doppler and color Doppler. Blood Pressure: 140/95 mmHg INDICATION Hypertensive urgency RISK FACTORS Height: 66, Weight: 200 DIMENSIONS LVDd4.3 (3.8-5.7cm)LA (2D)3.8 (1.9-4.0cm)Aortic Root3.5 (2.0-3.7cm) LVDs2.6 (2.5-4.0cm)LA (MM) (1.9-4.0cm)Aortic Cusp Exc1.8 (1.5-2.0cm) EF (%) 64.0 (55-70%)Rt. Atrium4.1 (1.9-4.0cm)Asc. Aorta cm IVSd1.0 (0.7-1.1cm)RV (D) (1.8-2.4cm) PWd1.2 (0.7-1.1cm) Mitral Valve MitralMitral Stenosis E wave0.73m/sMV Mean GR.mmHg A wave0.48m/sMV Peak GR.mmHg E/A ratio1.52D MVAcm2 DECEL [id number] 1/2 [id number] IVRTmsDop MVA4.71cm2 Aortic Valve Aortic ValveAortic Stenosis V10.92m/Elizabeth Mean GR.3mmHg V21.17m/Elizabeth Peak GR.6mmHg LVOT Diameter2.0 (1.8-2.4cm)Doppler AVA2.47cm2 Pulmonic Valve V20.81m/s Tricuspid Valve TR Velocity2.12m/s [id number] Conclusion lvef 60% mild to moderate LVH normal rv function no severe valve abnormality noted left atrum enlarged mild tricuspid regurg
[2025-09-24 08:00] VITALS: PULSE 75; PULSE 79; RESP 16
[2025-09-24 09:00] VITALS: BP 132/90; PULSE 84; RESP 16; TEMP 98.2; O2SAT 99
--- NOTE | 2025-09-24 11:22 | DVHPN2 ---
Consult Progress Note Date Seen: Sep 24, 2025 Objective vital signs Vital Sign Date Time Temp Pulse Resp B/P (MAP) Pulse Ox O2 Delivery O2 Flow Rate FiO2 09/24/25 09:06 132/90 09/24/25 09:00 98.2 84 16 99 98.2 09/23/25 20:00 Room Air* 0 21 Total Intake and Output 09/23/25 09/23/25 09/24/25 15:00 23:00 07:00 Intake Total 50 ml 2090 ml 1000 ml Balance 50 ml 2090 ml 1000 ml medications Current Medications Medications Dose Ordered Sig/Toshia Route Start Time Stop Time Status Last Admin Dose Admin Acetaminophen/ Hydrocodone Bitart 1 tab Q4HP PRN PO 09/18/25 14:30 09/20/25 20:57 1 TAB Ondansetron HCl 4 mg Q4HP PRN IV 09/18/25 14:30 Docusate Sodium 100 mg BIDPRN PRN PO 09/18/25 14:30 09/19/25 21:13 100 MG Acetaminophen 650 mg Q6HP PRN PO 09/18/25 14:30 Nitroglycerin 0.4 mg Q5MINP PRN SL 09/18/25 14:30 Morphine Sulfate 2 mg Q30M PRN IV 09/18/25 14:30 Losartan Potassium 25 mg DAILY PO 09/19/25 10:00 09/24/25 09:06 25 MG Clonidine HCl 0.1 mg Q6HP PRN PO 09/18/25 15:00 09/18/25 20:30 0.1 MG Amlodipine Besylate 5 mg DAILY PO 09/19/25 10:00 09/24/25 09:05 5 MG Ceftriaxone Sodium 50 ml @ 100 mls/hr DAILY@09 IV 09/20/25 09:00 09/24/25 09:05 100 MLS/HR Azithromycin 250 ml @ 125 mls/hr TID IV 09/19/25 22:00 09/24/25 05:08 125 MLS/HR Gabapentin 100 mg BID PO 09/19/25 22:00 09/24/25 09:05 100 MG laboratory and microbiology Laboratory Tests 09/19/25 04:58 Test 09/19/25 04:58 Range/Units Serum Glucose 85 74-106 mg/dL Problem List/Assessment/Plan Problem List/Assessment/Plan patient seen at bedside, breathing well on RA, ongoing cough AFB x 2 neg bacterial sputum x2 plan: test for cocci and aspergillus ab screen for HIV and acute hepatitis per dept of TB health guidelines continue current antiotics afb x 1 and mtb pcr x 2 pending coordinating with dept of public health and infection control for safe discharge Plan discussed with: Patient Dietary Evaluation Review Recommendations by RD: Dietary education by RD Comments: 1) Consider changing 2g Na diet to cardiac diet d/t obesity 2) Encourage optimal PO intake 3) Refer to outpatient RD for weight management 4) Follow-up with cardiology 5) Continue to monitor I&O, labs, and skin integrity Expected Outcomes/Goals: 1) appetite and labs to improve 2) gradual wt loss 3) f/u in 3-5 days KRISTY WHEATLEY MD Sep 24, 2025 11:22
--- NOTE | 2025-09-24 11:34 | DVHDS2 ---
Discharge Summary Date of Admission Sep 18, 2025 at 14:28 Date of Discharge: Sep 24, 2025 Labs/Diagnostic Data: Laboratory Results Test 09/21/25 07:07 09/20/25 13:26 09/19/25 04:58 09/18/25 15:47 Miscellaneous Referred Test (Refrg) Sent to [facility] TB Test (QFT) Gold Plus Positive (Negative) TB Test (QFT) Nil 0.40 IU/mL (.) TB Test (QFT) Mitogen >10.00 IU/mL (.) TB Test (QFT) Antigen 1 >10.00 IU/mL (.) TB Test (QFT) Antigen 2 >10.00 IU/mL (.) TB Test (QFT) Criteria Comment (.) White Blood Count 5.7 10^3/uL (4.4-10.8) Red Blood Count 4.85 10^6/uL (4.0-5.20) Hemoglobin 14.7 g/dL (12.2-16.2) Hematocrit 42.6 % (36.0-46.0) Mean Corpuscular Volume 87.8 fL (80.0-100.0) Mean Corpuscular Hemoglobin 30.4 pg (28.0-32.0) Mean Corpuscular Hemoglobin Concent 34.6 g/dL (32.0-36.0) Red Cell Distribution Width 12.5 % (11.8-14.3) Platelet Count 217 10^3/uL (140-450) Mean Platelet Volume 8.3 fL (6.9-10.8) Neutrophils (%) (Auto) 47.0 % (37.0-80.0) Lymphocytes (%) (Auto) 42.9 % (10.0-50.0) Monocytes (%) (Auto) 8.6 % (0.0-12.0) Eosinophils (%) (Auto) 1.1 % (0.0-7.0) Basophils (%) (Auto) 0.4 % (0.0-2.0) Neutrophils # (Auto) 2.7 10 ^3/uL (1.6-8.6) Lymphocytes # (Auto) 2.4 10 ^3/uL (0.4-5.4) Monocytes # (Auto) 0.5 10 ^3/uL (0-1.3) Eosinophils # (Auto) 0.1 10 ^3/uL (0-0.8) Basophils # (Auto) 0 10 ^3/uL (0-0.2) Nucleated Red Blood Cells 0.1 % Sodium Level 139 mmol/L (136-145) Potassium Level 3.7 mmol/L (3.5-5.1) Chloride Level 103 mmol/L (98-107) Carbon Dioxide Level 28 mmol/L (20-31) Anion Gap 8 (5-15) Blood Urea Nitrogen 11 mg/dL (9-23) Creatinine 0.76 mg/dL (0.550-1.02) Glomerular Filtration Rate Calc 102 mL/min (>90) BUN/Creatinine Ratio 14.5 (10.0-20.0) Serum Glucose 85 mg/dL (74-106) Calcium Level 9.6 mg/dL (8.7-10.4) Total Bilirubin 0.6 mg/dL (0.2-1.0) Aspartate Amino Transferase (AST) 22 U/L (13-40) Alanine Aminotransferase (ALT) 35 U/L (7-40) Alkaline Phosphatase 61 U/L (46-116) Total Protein 7.6 g/dL (5.7-8.2) Albumin 4.4 g/dL (3.2-4.8) Influenza Type A Antigen Negative (Negative) Influenza Type B Antigen Negative (Negative) SARS-CoV-2 Antigen (Rapid) Negative (NEGATIVE) Test 09/18/25 14:44 09/18/25 11:04 Troponin I High Sensitivity 4 ng/L (</=34) Urine Color Light-yellow (Yellow) Urine Clarity Turbid (Clear) Urine pH 7.0 (5.0-9.0) Urine Specific [place] 1.023 (1.001-1.035) Urine Protein Negative (Negative) Urine Ketones Negative (Negative) Urine Blood 3+ /uL (Negative) Urine Nitrite Negative (Negative) Urine Bilirubin Negative (Negative) Urine Urobilinogen Normal mg/dL (Negative) Urine Leukocyte Esterase Negative /uL (Negative) Urine RBC 341 /hpf (0 - 4) Urine Microscopic WBC 2 /HPF (0-5) Urine Squamous Epithelial Cells Few /hpf (<5) Urine Amorphous Crystals Few /hpf (None Seen) Urine Bacteria Many /hpf (None Seen) Urine Yeast (Budding) Moderate /hpf (None Seen) Urine Glucose Normal mg/dL (Normal) Urine Test Negative (Negative) Other Laboratory Tests 09/19/25 04:58 Brief Hx & Hospital Course: 40-year-old female with past medical history of hypertension, who came to the hospital for shortness of breath and cough. Patient states she has been experiencing bloody noses, cough, hemoptysis, decreased appetite, and fatigue for almost 2 weeks. She states she her symptoms have worsened with shortness of breath when laying down, and she is propping herself up with pillows to sleep. 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 We will have to do TB ruled out,, AFP smear stents 3, IgA RA, start antibiotics azithromycin ceftriaxone,. Nebulizers prn. Continue blood pressure medications. For her peripheral neuropathy start gabapentin 100 mg 2 times daily. We will also get CT chest. Echocardiogram pending 09/20: CT showing right middle lobe subpleural 5 mm nodule. EAP sample was sent today, to monitor for next 2 days. Patient wants to leave. Encourage patient to stay. We will likely need palm consult 09/21: Patient feels good healthy, pulmonology wants to do bronchoscopy outpatient and quantify hemoptysis. Patient is not having any hemoptysis almost at all. No urgent plan for subpleural nodule. Patient does not want to stay if admission is not absolutely necessary. We will consult Infectious Disease, possibly get 1 more 3rd EAP smear tomorrow a.m. and have either ID or Health Department follow up on the results. Patient appears healthy no significant cough no significant hemoptysis. She does not have a PCP, we will put in day care supervisor consult today.. 09/24: Patient continues to remain stable, no significant hemoptysis, AFB smears x2 have been negative, [facility] QuantiFERON gold positive,. She will need follow up with Pulmonary and ID. No active TB, stable to discharge. Diagnosis: Hemoptysis, active TB ruled out Pulmonary nodule Hypertensive urgency, Pneumonia , possible, community-acquired, Gram-negative/Gram-positive likely. Paraesthesia, Peripheral neuropathy possible Plan: - Work note, can return to work tomorrow - Close follow up with PCP, PCP should be set up by this week . PCP follow up next week - Need a referral to Pulmonary - Need a referral to ID Condition at Discharge: Fair Final Diagnosis/Problems List Hemoptysis, active TB ruled out Pulmonary nodule Hypertensive urgency, Pneumonia , possible, community-acquired, Gram-negative/Gram-positive likely. Paraesthesia, Peripheral neuropathy possible Discharge Disposition: Home Discharge Instruct/Medications Scheduled Losartan Potassium (Losartan Potassium), 1 TAB PO DAILY, (Reported) Discharge Statement: "Patient was advised to return to the ER or call 911 if any headaches, dizziness, shortness of breath, chest pain, abdominal pain, bleeding, fevers, or worsening of medical condition. Patient was counseled about treatment plan, medications, possible side effects, patientverbalized understanding. All questions were answered to the best of my ability. This discharge took greater then 30 minutes in planning, reviewing documentation, counseling the patient, and discussing with other team members." ASSESSMENT ASSESSMENT Assessment Date of Service: Sep 24, 2025 Billing Provider: REKHA OCHOA MD Common Visit Codes: 60711-FIL/OBS DISCH DAY >30min REKHA OCHOA MD Sep 24, 2025 11:34
[2025-09-24 12:07] VITALS: BP 132/90; TEMP 36.8
[2025-09-24 13:00] VITALS: BP 148/100; PULSE 92; RESP 18; TEMP 98.4; O2SAT 99
--- NOTE | 2025-09-24 22:07 | DVHPN2 ---
Subjective DOS: 09/24/2025 Patient seen and examined at bedside. Breathing comfortably on room air. Overnight events reviewed. Reviewed: H&P Changes from previous H/P or p: No Changes General: Per HPI Eyes: No Pain, No Vision change, No Conjunctivae inflammation, No Eyelid inflammation, No Other, No Redness ENT: No Ear pain, No Ear discharge, No Nose pain, No Nose discharge, No Nose congestion, No Mouth pain, No Mouth swelling, No Throat pain, No Throat swelling, No Other Cardiovascular: No Chest Pain, No Palpitations, No Orthopnea, No Paroxysmal Noc. Dyspnea, No Edema, No Lt Headedness, No Other Respiratory: Cough; No Dry; Shortness of breath; No SOB with excertion, No Wheezing; Hemoptysis; No Pleuritic Pain, No Sputum, No Other Gastrointestinal: No Nausea, No Vomiting, No Abdominal Pain, No Diarrhea, No Constipation, No Melena, No Hematochezia, No Other Genitourinary: No Dysuria, No Frequency, No Incontinence, No Hematuria, No Retention, No Other Musculoskeletal: No other, No neck pain, No shoulder pain, No arm pain, No back pain, No hand pain, No leg pain, No foot pain Skin: No Rash, No Lesions, No Jaundice, No Bruising, No Other Objective Vitals Vital Signs Date Time Temp Pulse Resp B/P (MAP) Pulse Ox O2 Delivery O2 Flow Rate FiO2 09/24/25 13:00 98.4 92 18 148/100 (116) 99 98.4 09/24/25 08:00 Room Air* 0 21 Intake/Output Intake and Output 09/24/25 06:59 Intake Total 3140 ml Balance 3140 ml Intake Oral 2590 ml IV Total 550 ml # Voids 8 # Bowel Movements 1 Exam Gen.: Patient lying in bed in no apparent distress. Breathing on room air. Head: Normocephalic, atraumatic. Eyes: EOMI/PERRLA. Ears: Normal hearing. Normal anatomy. Neck/trachea: Trachea midline, supple. Nose: Normal external anatomy. Mouth: Moist mucous membranes. Chest: Decreased air entry bilaterally. No wheezing or rhonchi. Cardiovascular: Positive S1, positive S2. Regular rate and rhythm. Abdomen: Positive bowel sounds in all 4 quadrants. Soft, non-tender, non- distended. : Deferred. Rectal: Deferred. Skin: Warm, dry. Intact. Extremities: 2+ radial pulses bilaterally. No lower extremity edema. Neuro: Awake, alert, oriented x3. No gross motor or sensory deficits. Cranial nerves II through XII intact. Gait not assessed. General Appearance: Alert, Oriented X3, Cooperative, No acute distress Lungs: Clear to auscultation, Normal air movement Cardiovascular: Regular rate, Normal S1, Normal S2 Abdomen: Normal bowel sounds, Soft, No tenderness Extremities: No edema Laboratory Results Laboratory Tests 09/19/25 04:58 Urinalysis Test 09/18/25 11:04 Urine Color Light-yellow (Yellow) Urine Clarity Turbid (Clear) H Urine pH 7.0 (5.0-9.0) Urine Specific [place] 1.023 (1.001-1.035) Urine Protein Negative (Negative) Urine Ketones Negative (Negative) Urine Blood 3+ /uL (Negative) H Urine Nitrite Negative (Negative) Urine Bilirubin Negative (Negative) Urine Urobilinogen Normal mg/dL (Negative) Urine Leukocyte Esterase Negative /uL (Negative) Urine RBC 341 /hpf (0 - 4) Urine Microscopic WBC 2 /HPF (0-5) Urine Squamous Epithelial Cells Few /hpf (<5) Urine Amorphous Crystals Few /hpf (None Seen) Urine Bacteria Many /hpf (None Seen) H Urine Yeast (Budding) Moderate /hpf (None Seen) Urine Glucose Normal mg/dL (Normal) Urine Test Negative (Negative) Microbiology Microbiology Date/Time Source Procedure Growth Status 09/22/25 08:46 Sputum AFB Broth Culture Pending Resulted 09/22/25 08:46 Sputum - Final Resulted 09/22/25 08:46 Sputum - Final Resulted 09/22/25 08:46 Sputum Acid Fast Bacilli Culture Pending Resulted Assessment/Plan Assessment/Plan Impression: Hemoptysis, resolved. Pulmonary nodule Latent tuberculosis. Pleural effusion Atelectasis Obesity Events: Breathing on room air Supplemental oxygen PRN Continue antibiotics Incentive spirometry Sputum cultures show normal oropharyngeal chava. TB rule out: AFB smear x2 negative. QuantiFERON came back positive - latent TB. Follow up with ID for possible treatments. Hemoptysis is resolved. Patient is stable for discharge from the pulmonary standpoint. Recommend repeat CT chest with contrast in 6-8 weeks. Labs and imaging reviewed. Rest of plan as noted below. Plan: Supplemental oxygen PRN Titrate to keep O2 sats above 92%. Pt noted on imaging to have pulmonary nodule, likely reactive. Chest CT on 09/19/25 demonstrates mild cardiomegaly and miniscule left pleural effusion. Tiny sub 5 mm anterior subpleural right middle lobe pulmonary nodule, likely postinfectious or postinflammatory. Mildly prominent bilateral axillary lymph nodes and mild skin thickening of the axilla bilaterally, partially imaged. QuantiFERON positive, c/w latent tuberculosis Obtain a total of 3 AFB smears. Follow up results. AFB smears negative x2. Consider bronchoscopy once active TB ruled out/AFB smears negative x3. Continue antibiotics Follow up ID recommendations Incentive spirometry Monitor renal function. Monitor electrolytes. Supplement as necessary. Monitor ins and outs. Recommend diet and lifestyle modifications for weight reduction Obesity complicates all care DVT prophylaxis. Prognosis: Guarded given patient's multiple co-morbidities. Rest of plan per hospitalist and other consultants. Thank you, Dr. Dominique, for allowing me to participate in this patient's care. Further recommendations will depend on the patient's clinical course. Please do not hesitate to contact me if you have any questions or concerns. This medical document was created using an electronic medical record system with iwi dictation system. Although these documentations are being carefully reviewed, there may still be some phonetic and typographical changes. The errors are purely typographical, due to imperfection on the software program, and do not reflect any compromise in the patient's medical care. Plan discussed with: Patient, Other (SANDHYA Cano) Visit Coding Pulmonary Billing Provider: MICHEAL VOGT MD Date of Service if different f: Sep 24, 2025 Common Visit Codes: [id number] INP/OBS CARE(HIGH) MICHEAL VOGT MD Sep 24, 2025 22:06
== END 2025-09-24 13:56 | disposition home or self-care (01) | DRG 137 ==
LOC: ER 09:41 → OVERFLOW 14:28 → TELE-WESTW 09-19 01:46 → TELE-EAST 09-19 19:35
PROVIDERS: ADMIT Student in an Organized Health Care Education/Training Program; ATTEND Student in an Organized Health Care Education/Training Program
DX: J15.69 Pneumonia due to other Gram-negative bacteria (principal); I16.0 Hypertensive urgency; J15.9 Unspecified bacterial pneumonia; J90 Pleural effusion, not elsewhere classified; R04.2 Hemoptysis; Z20.822 Contact with and (suspected) exposure to COVID-19; G62.9 Polyneuropathy, unspecified; J98.11 Atelectasis; I10 Essential (primary) hypertension; R16.1 Splenomegaly, not elsewhere classified; L73.9 Follicular disorder, unspecified; E66.9 Obesity, unspecified; Z90.49 Acquired absence of other specified parts of digestive tract; Z82.49 Family history of ischemic heart disease and other diseases of the circulatory system; Z68.31 Body mass index [BMI] 31.0-31.9, adult; Z79.899 Other long term (current) drug therapy
CPT/HCPCS: 36415; 71045; 71250; 73630; 80048; 80053; 81001; 81025; 84484; 85025; 87070; 87205; 87426; 87804; 93306; 99291; G0378

== ENCOUNTER → 2025-11-15 | Outpatient (CLI) | payer MEDICAID ==
[~2025-11-15] MED LIST: LOS25T PO
[2025-11-15 10:59] LABS: Potassium 3.8 mmol/L (3.5-5.1)
[2025-11-15 11:04] LABS: Glucose 87.0 mg/dL (74-106); Uric Acid 5.0 mg/dL (3.1-7.8)
[2025-11-15 11:05] LABS: Magnesium 2.1 mg/dL (1.6-2.6)
== END | disposition home or self-care (01) ==
LOC: LAB 09:54
DX: M79.669 Pain in unspecified lower leg (principal); Z79.899 Other long term (current) drug therapy
CPT/HCPCS: 36415; 82306; 82947; 83036; 83735; 84132; 84550